=== PATIENT | male | born 1955 | race Caucasian/White ===

== ENCOUNTER 2016-05-11 19:25 | Inpatient (IN) | payer OTHER, MEDICARE ==
[~2016-05-11] VITALS: Ht 180.3 cm; Wt 77.0 kg
[2016-05-11 19:27] VITALS: BP 128/68; PULSE 84; RESP 15; TEMP 97.4; O2SAT 98
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
[2016-05-11] MEDS ORDERED: SODIUM CHLOR 0.9% 1000 ML INJ 1,000 ML IV SCH ×2 (20:18→21:00)
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
[2016-05-11] MEDS ORDERED: MORPHINE SULFATE 4 MG/ML INJ IV PUSH ONE (20:30)
[2016-05-11] MEDS ORDERED: ONDANSETRON HCL 4 MG/2 ML VIAL IVP ONE (20:30)
[2016-05-11] MEDS ORDERED: SODIUM CHLORIDE 0.9% FLUSH 5 ML FLUSH IVF PRN (20:30)
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
[2016-05-11] MEDS ORDERED: SODIUM CHLORIDE 0.9% FLUSH 5 ML FLUSH FLUSH PRN (21:00)
[2016-05-11] MEDS ORDERED: ONDANSETRON HCL 4 MG/2 ML VIAL IVP PRN (21:00)
[2016-05-11] MEDS ORDERED: BISACODYL 10 MG SUPP PR PRN (21:00)
[2016-05-11] MEDS ORDERED: ACETAMINOPHEN 325 MG TAB PO PRN (21:00)
[2016-05-11] MEDS ORDERED: SODIUM CHLORIDE 0.9% FLUSH 5 ML FLUSH FLUSH SCH (21:00)
--- NOTE | 2016-05-11 21:00 | RADRPT ---
EXAM DATE/TIME: 05/11/2016 20:24 [facility] COMPARISON: No previous studies available for comparison. INDICATIONS : Evaluate heart and lungs for pneumonia or communicable disease. MEDICAL HISTORY : None. SURGICAL HISTORY : None. ENCOUNTER: Initial ACUITY: 1 day PAIN SCORE: 0/10 LOCATION: chest FINDINGS: A single view of the chest demonstrates the lungs to be symmetrically aerated without evidence of mas s, infiltrate or effusion. Atherosclerotic change is present in the aorta. The cardiomediastinal con tours are unremarkable. Osseous structures are intact. CONCLUSION: No acute disease. Huber Mckee MD on May 11, 2016 at 20:58 Board Certified Radiologist. This report was verified electronically.
[2016-05-11] MEDS ORDERED: PROPOFOL 200 MG/20 ML AMP IV ONE ×2 (21:30→23:15)
[2016-05-11 21:38] LABS: AUTOMATED NEUTROPHIL # 3.4 TH/MM3 (1.8-7.7); BASOPHIL % 0.3 % (0.0-2.0); EOSINOPHIL # 0.1 TH/MM3 (0-0.4); EOSINOPHIL % 1.9 % (0.0-4.0); HEMATOCRIT 37.8 % (39.0-51.0); LYMPH % 13.8 % (9.0-44.0); LYMPHOCYTE # 0.6 TH/MM3 (1.0-4.8); MEAN CELL VOLUME 84.3 FL (80.0-100.0); MEAN CORPUSCULAR HEMOGLOBIN 29.8 PG (27.0-34.0); MEAN CORPUSCULAR HGB CONC 35.3 % (32.0-36.0); MONO % 7.2 % (0.0-8.0); NEUT % 76.8 % (16.0-70.0); PLATELET COUNT 50 TH/MM3 (150-450); RED BLOOD COUNT 4.49 MIL/MM3 (4.50-5.90); RED CELL DISTRIBUTION WIDTH 14.3 % (11.6-17.2); WHITE BLOOD COUNT 4.4 TH/MM3 (4.0-11.0)
[2016-05-11 21:42] LABS: HEMO FLAGS AUTO DIFF
[2016-05-11 21:46] LABS: APTT (PATIENT) 26.4 SEC (24.3-30.1); INTERNATIONAL NORMALIZED RATIO 1.1 RATIO; PROTHROMBIN TIME - PATIENT 12.1 SEC (9.8-11.6)
--- NOTE | 2016-05-11 21:53 | PD ---
Data Data Last Documented VS Vital Signs Date Time Temp Pulse Resp B/P Pulse Ox O2 Delivery O2 Flow Rate FiO2 05/11/16 19:27 97.4 84 15 128/68 98 Room Air Orders Knee, Complete (4vws) (05/11/16 ) Ice/Cold Pack (05/11/16 19:50) Basic Metabolic Panel (Bmp) (05/11/16 20:18) Complete Blood Count With Diff (05/11/16 20:18) Prothrombin Time / Inr (Pt) (05/11/16 20:18) Act Partial Throm Time (Ptt) (05/11/16 20:18) Iv Access Insert/Monitor (05/11/16 20:18) Ecg Monitoring (05/11/16 20:18) Oximetry (05/11/16 20:18) Morphine Inj (Morphine Inj) (05/11/16 20:30) Ondansetron Inj (Zofran Inj) (05/11/16 20:30) Sodium Chlor 0.9% 1000 Ml Inj (Ns 1000 M (05/11/16 20:18) Sodium Chloride 0.9% Flush (Ns Flush) (05/11/16 20:30) Electrocardiogram (05/11/16 20:18) Chest, Single Ap (05/11/16 20:18) Splint Or Brace Apply/Monitor (05/11/16 20:43) Traction (05/11/16 20:43) Consult Orthopedic (05/11/16 ) Admit To Inpatient (05/11/16 ) Vital Signs (Adult) Q4H (05/11/16 20:50) Activity Bed Rest (05/11/16 20:50) Diet Npo (05/12/16 Breakfast) Sodium Chlor 0.9% 1000 Ml Inj (Ns 1000 M (05/11/16 21:00) Sodium Chloride 0.9% Flush (Ns Flush) (05/11/16 21:00) Sodium Chloride 0.9% Flush (Ns Flush) (05/11/16 21:00) Ondansetron Inj (Zofran Inj) (05/11/16 21:00) Bisacodyl Supp (Dulcolax Supp) (05/11/16 21:00) Comprehensive Metabolic Panel (05/12/16 06:00) Complete Blood Count With Diff (05/12/16 06:00) Acetaminophen (Tylenol) (05/11/16 21:00) Morphine Inj (Morphine Inj) (05/11/16 21:00) Inpatient Certification (05/11/16 ) Admit Order (Ed Use Only) (05/11/16 20:56) Labs Laboratory Tests Test 05/11/16 20:52 White Blood Count 4.4 TH/MM3 Red Blood Count 4.49 MIL/MM3 Hemoglobin 13.4 GM/DL Hematocrit 37.8 % Mean Corpuscular Volume 84.3 FL Mean Corpuscular Hemoglobin 29.8 PG Mean Corpuscular Hemoglobin 35.3 % Concent Red Cell Distribution Width 14.3 % Platelet Count 50 TH/MM3 Mean Platelet Volume 8.9 FL Neutrophils (%) (Auto) 76.8 % Lymphocytes (%) (Auto) 13.8 % Monocytes (%) (Auto) 7.2 % Eosinophils (%) (Auto) 1.9 % Basophils (%) (Auto) 0.3 % Neutrophils # (Auto) 3.4 TH/MM3 Lymphocytes # (Auto) 0.6 TH/MM3 Monocytes # (Auto) 0.3 TH/MM3 Eosinophils # (Auto) 0.1 TH/MM3 Basophils # (Auto) 0.0 TH/MM3 CBC Comment AUTO DIFF Prothrombin Time 12.1 SEC Prothromb Time International 1.1 RATIO Ratio Activated Partial 26.4 SEC Thromboplast Time MDM Medical Record Reviewed: Yes Supervised Visit with ABRAHAM: Yes Narrative Course Per request of orthopedics procedural sedation with reduction of proximal left tibia fracture was performed. MAY Spicer performed reduction. The blurb writer performed the procedural sedation. Traction countertraction technique employed. Postreduction film ordered. 2+ dorsalis pedis pulse before and after. Sensation and motor function intact after the reduction. An ice cuff was placed and a knee immobilizer was placed with Monroy's traction immediately following the procedure. The patient will be admitted to the hospitalist service; the hospitalist service has been consulted. Procedures Procedure Narrative After the risks and benefits were discussed the following procedure was performed: MODERATE SEDATION: The patient was placed on a hospital monitor and pulse oximetry. An ambu bag and suction was immediately available at bedside. The patient was monitored by the nurse. Oxygen saturation , heart rate and blood pressure were monitored. Procedural sedation was acheived using propofol. The patient was observed until awake and alert. Procedural Sedation time in attendance was 10 minutes. Scripts Unable to Obtain Active Prescriptions or Reported Meds Joseph Cabrera MD May 11, 2016 21:53
[2016-05-11 21:58] LABS: BICARBONATE 29.5 MEQ/L (21.0-32.0); POTASSIUM 4.4 MEQ/L (3.5-5.1)
[2016-05-11 22:06] VITALS: BP 120/67; PULSE 79; RESP 12; O2SAT 98
[2016-05-11 22:07] VITALS: RESP 12; O2SAT 100
[2016-05-11 22:11] LABS: PLATELET ESTIMATE SMEAR LOW (NORMAL); PLATELET MORPHOLOGY NORMAL (NORMAL); SCAN/DIFF AUTO DIFF CONFIRMED
[2016-05-11 22:45] VITALS: BP 106/58; PULSE 90; RESP 12; O2SAT 100
--- NOTE | 2016-05-11 22:50 | RADRPT ---
EXAM DATE/TIME: 05/11/2016 22:00 [facility] COMPARISON: KNEE LEFT COMPLETE (4VWS), May 11, 2016, 20:05. INDICATIONS : Evaluate knee post reduction. MEDICAL HISTORY : None. SURGICAL HISTORY : None. ENCOUNTER: Initial ACUITY: 1 day PAIN SCORE: 0/10 LOCATION: Left Knee FINDINGS: AP and lateral views of the left knee were obtained and demonstrate mild overlying artifact. A commin uted fracture of the proximal tibia is again noted with multiple fracture fragments. The main fractur e fragments are now in near-anatomic alignment. There is apparent central depression of one of the fr agments measuring up to 1.7 cm. There is overlying soft tissue swelling. The distal femur and fibula remain intact in appearance. CONCLUSION: Post reduction exam with the major fracture fragments in near-anatomic alignment. A c entral fragment remains depressed in appearance. Huber Mckee MD on May 11, 2016 at 22:47 Board Certified Radiologist. This report was verified electronically.
[2016-05-11 22:54] VITALS: O2SAT 100
[2016-05-11 23:22] VITALS: BP 139/77; PULSE 83; RESP 16; TEMP 98.6; O2SAT 98
[2016-05-12 04:00] VITALS: BP 142/70; PULSE 90; RESP 16; TEMP 99.1; O2SAT 96
[2016-05-12] MEDS: MORPHINE SULFATE 4 MG/ML INJ IV PRN ×2 (05:19→07:59)
[2016-05-12 07:28] LABS: AUTOMATED NEUTROPHIL # 2.6 TH/MM3 (1.8-7.7); BASOPHIL % 0.5 % (0.0-2.0); EOSINOPHIL # 0.1 TH/MM3 (0-0.4); EOSINOPHIL % 2.4 % (0.0-4.0); HEMATOCRIT 36.1 % (39.0-51.0); LYMPH % 19.7 % (9.0-44.0); LYMPHOCYTE # 0.7 TH/MM3 (1.0-4.8); MEAN CELL VOLUME 84.5 FL (80.0-100.0); MEAN CORPUSCULAR HEMOGLOBIN 28.9 PG (27.0-34.0); MEAN CORPUSCULAR HGB CONC 34.2 % (32.0-36.0); MONO % 8.9 % (0.0-8.0); NEUT % 68.5 % (16.0-70.0); PLATELET COUNT 41 TH/MM3 (150-450); RED BLOOD COUNT 4.27 MIL/MM3 (4.50-5.90); RED CELL DISTRIBUTION WIDTH 14.4 % (11.6-17.2); WHITE BLOOD COUNT 3.8 TH/MM3 (4.0-11.0)
[2016-05-12 08:00] VITALS: BP 143/83; PULSE 95; RESP 18; TEMP 99.3; O2SAT 97
[2016-05-12 08:04] LABS: ALKALINE PHOSPHATASE 65 U/L (45-117); ALT (GPT) 50 U/L (12-78); ANION GAP 8 MEQ/L (5-15); AST (GOT) 79 U/L (15-37); BICARBONATE 29.2 MEQ/L (21.0-32.0); BLOOD UREA NITROGEN 10 MG/DL (7-18); CHLORIDE 98 MEQ/L (98-107); GLOMERULAR FILTRATION RATE 99 ML/MIN (>89); POTASSIUM 4.2 MEQ/L (3.5-5.1); SODIUM (NA) 135 MEQ/L (136-145); TOTAL BILIRUBIN ADULT 2.6 MG/DL (0.2-1.0)
[2016-05-12 08:07] LABS: HEMO FLAGS AUTO DIFF
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
[2016-05-12 09:16] LABS: PLATELET ESTIMATE SMEAR LOW (NORMAL); PLATELET MORPHOLOGY NORMAL (NORMAL); SCAN/DIFF AUTO DIFF CONFIRMED
[2016-05-12] MEDS ORDERED: WALKER/ADULT/FO1 MIS (09:17)
[2016-05-12] MEDS ORDERED: COMMODE 3-IN-11 MIS (09:17)
--- NOTE | 2016-05-12 09:20 | EKG ---
Date Performed: 05/12/2016 Time Performed: 06:05:39 PTAGE: 60 years EKG: Sinus rhythm NONSPECIFIC T-WAVE ABNORMALITY BORDERLINE ECG No significant change from prior electrocardiogram. PREVIOUS TRACING : 05/11/2016 20.13 DOCTOR: Abraham Herrera Interpretating Date/Time 05/12/2016 09:19:14
[2016-05-12] MEDS ORDERED: VANCOMYCIN HCL 1000 MG VIAL ONE (09:25)
[2016-05-12] MEDS ORDERED: GENTAMICIN SULFATE 80 MG/2 ML VIAL ONE (09:25)
[2016-05-12] MEDS ORDERED: ceFAZolin INJ 1,000 MG VIAL ONE (09:25)
--- NOTE | 2016-05-12 09:32 | EKG ---
Date Performed: 05/11/2016 Time Performed: 20:13:41 PTAGE: 60 years EKG: Sinus rhythm WITH OCCASIONAL SUPRAVENTRICULAR PREMATURE COMPLEXES NONSPECIFIC T-WAVE ABNORMALITY BORDERLINE ECG NO PREVIOUS TRACING DOCTOR: Abraham Herrera Interpretating Date/Time 05/12/2016 09:31:26
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
[2016-05-12] MEDS ORDERED: GENTAMICIN SULFATE 80 MG/2 ML VIAL XX ONE (09:45)
[2016-05-12] MEDS ORDERED: MAGNESIUM HYDROXIDE SUSP 30 ML CUP PO PRN (10:00)
[2016-05-12] MEDS ORDERED: ONDANSETRON HCL 4 MG/2 ML VIAL IVP PRN (10:00)
[2016-05-12] MEDS ORDERED: MISCELLANEOUS NURSING INFORMATION XX PRN (10:00)
[2016-05-12] MEDS ORDERED: SODIUM CHLORIDE 0.9% FLUSH 5 ML FLUSH IVF PRN (10:00)
[2016-05-12] MEDS ORDERED: NALOXONE HCL 0.4 MG/ML AMP IV PRN (10:00)
[2016-05-12] MEDS ORDERED: Post-op Orders (for Pharmacy) MISC XX ONE (10:00)
[2016-05-12] MEDS ORDERED: MISCELLANEOUS PHARMACY INFORMATION XX ONE (10:00)
--- NOTE | 2016-05-12 10:32 | PD.OP ---
cc: Eduardo Abrams MD Operative Report Date of Surgery: May 12, 2016 Preoperative Diagnosis: Left bicondylar tibial plateau fracture. Postoperative Diagnosis: Same Procedure: Left leg close reduction of bicondylar tibial plateau fracture. Left leg application of uniplanar external fixator. Anesthesia: Gen. Surgeon: Eduardo Abrams Hand Clerical Verifier(s): LIZZETTE Hunt The surgical procedure was assisted by my Advanced Registered Nurse Practitioner. My TOPSTITCHER LOCKSTITCH presence was necessary throughout this case for the manipulation and positioning of the surgical extremity. My TOPSTITCHER LOCKSTITCH was assisting me throughout the duration of this procedure. The skill set of an Advance Registered Nurse Practitioner was medically necessary to complete this procedure. During the surgical case, the surgical training specialist was working at the back table and the Advance Registered Nurse Practitioner was directly assisting me. Operation and Findings: The patient was brought back to the operative theater. He received intravenous antibiotics. We decided to move forward with an external fixator since the patient had moderate swelling of the leg. The compartments were soft with no clinical suspicion of compartment syndrome. Additionally the patient continued to have thrombocytopenia. The most recent value showed a little 40 which was down from yesterday. He will need to have this corrected prior to definitive surgical management such as ORIF. Gen. anesthesia was administered. The left lower extremity was prepped and draped in the usual sterile fashion. We made incision and used the guide to place 2 coated threaded Synthes half pins into the femur. We did the same on the tibia placing 2 half pins as well. We then performed a closed reduction of the fracture distracting the knee joint which lined up the fracture and much better position and no longer had articular cartilage pushing up against the edge of the tibial fracture site. We secured the leg in this position by placing 2 carbon fiber rods in parallel fashion one medial and one lateral off of the outriggers that we placed on the half pins. We take x-rays to include an AP and lateral showing good alignment. There was still some depression of the comminuted plateau itself. The pins were dressed. Postoperative plan is for planned, staged surgical management of the tibial plateau to include removal of the external fixator with open reduction and internal fixation. We will place the patient on Lovenox for now which will need to be stopped prior to surgery. Additionally the patient will need to have his thrombocytopenia corrected prior to surgery. Eduardo Abrams MD May 12, 2016 10:31
[2016-05-12] MEDS ORDERED: *hydrOXYzine 25 MG VIAL PERIprocedural Use ONLY IM ONE (10:44)
[2016-05-12] MEDS ORDERED: *morphine SULFATE 8 MG/ML PERIprocedure ONLY ONE (10:49)
[2016-05-12] MEDS ORDERED: *LABETALOL HCL 100 MG/20 ML VIAL PERIprocedural Use ONLY ONE (10:49)
[2016-05-12] MEDS ORDERED: fentaNYL CITRATE 250 MCG/5 ML AMP ONE (10:49)
[2016-05-12] MEDS ORDERED: MIDAZOLAM HCL 2 MG/2 ML VIAL ONE (10:49)
[2016-05-12] MEDS: DEXT 5%-NACL 0.45% 1000 ML INJ 1,000 ML IV SCH ×2 (11:00→21:00)
[2016-05-12 12:00] VITALS: BP 165/69; PULSE 89; RESP 18; TEMP 98.9; O2SAT 99
[2016-05-12] MEDS ORDERED: LORazepam 2 MG TAB PO PRN ×2 (12:00)
[2016-05-12] MEDS ORDERED: ONDANSETRON HCL 4 MG/2 ML VIAL IV PUSH ONE (12:00)
[2016-05-12] MEDS ORDERED: LORazepam 1 MG TAB PO PRN ×2 (12:00)
[2016-05-12] MEDS ORDERED: PHENYLEPH/NS 1000 MCG/10 ML SYR IV ONE (12:00)
[2016-05-12] MEDS ORDERED: PROPOFOL 200 MG/20 ML AMP IV ONE (12:00)
[2016-05-12] MEDS ORDERED: NEOSTIGMINE 3 MG/3 ML SYR IV ONE (12:00)
[2016-05-12] MEDS ORDERED: FLUMAZENIL 0.5 MG/5 ML VIAL IV PUSH PRN ×2 (12:00)
[2016-05-12] MEDS ORDERED: LORazepam 2 MG/ML VIAL IV PUSH PRN ×7 (12:00)
[2016-05-12] MEDS: ACETAMINOPHEN/HYDROcodone 325 MG/10 MG TAB PO PRN ×2 (13:48→22:41)
[2016-05-12 14:14] LABS: MAGNESIUM 1.5 MG/DL (1.5-2.5)
--- NOTE | 2016-05-12 14:32 | RADRPT ---
EXAM DATE/TIME: 05/12/2016 10:20 [facility] COMPARISON: CT KNEE LEFT W/O CONTRAST, May 12, 2016, 8:29. KNEE LEFT LTD (1 OR 2VWS), May 11, 2016, 22:00. INDICATIONS : Left knee external fixation. MEDICAL HISTORY : None. SURGICAL HISTORY : None. ENCOUNTER: Subsequent ACUITY: 2 days PAIN SCORE: Non-responsive. LOCATION: Left knee. FINDINGS: 2 coned-down views of the knee were obtained a drop of the using a matrix camera and demonstrate a mo derately comminuted fracture deformity of the proximal tibia. The fracture fragments appear in near-a natomic line and except for a portion of the central tibia which may be depressed. The external fixat ion device is not visualized. The distal femur is intact. CONCLUSION: Comminuted fracture of proximal tibia. Huber Mckee MD on May 12, 2016 at 14:26 Board Certified Radiologist. This report was verified electronically.
[2016-05-12] MEDS: PANTOPRAZOLE SOD 40 MG DELAYED RELEASE TAB PO SCH (14:44)
[2016-05-12] MEDS: FOLIC ACID 1 MG TAB PO SCH (14:44)
[2016-05-12] MEDS: THIAMINE HCL 100 MG TAB PO SCH (14:44)
[2016-05-12] MEDS: MULTIVITAMINS/MINERALS THERAPEUTIC TAB PO SCH (14:44)
[2016-05-12 16:00] VITALS: BP 154/89; PULSE 79; RESP 19; TEMP 98.3; O2SAT 100
[2016-05-12] MEDS: NICOTINE 21 MG/24 HR PATCH TD SCH (16:12)
[2016-05-12] MEDS: MAGNESIUM SULFATE 1 GM PREMIX 100 ML IV SCH ×2 (16:13→19:36)
[2016-05-12 17:01] LABS: AMPHETAMINE, URINE NEG (NEG); BARBITURATES, URINE NEG (NEG); COCAINE, URINE NEG (NEG)
[2016-05-12 20:00] VITALS: BP 167/83; PULSE 81; RESP 16; TEMP 99.8; O2SAT 98
[2016-05-12] MEDS: DOCUSATE SODIUM 50 MG/SENNA 8.6 MG TAB PO SCH (22:40)
[2016-05-12] MEDS: SODIUM CHLORIDE 0.9% FLUSH 5 ML FLUSH IVF SCH (22:40)
[2016-05-12] MEDS: SODIUM CHLORIDE 0.9% FLUSH 5 ML FLUSH IV FLUSH SCH (22:41)
[2016-05-13] VITALS: BP 143/87; PULSE 79; RESP 16; TEMP 98.7; O2SAT 97
[2016-05-13] MEDS: MORPHINE SULFATE 4 MG/ML INJ IV PRN ×5 (01:55→21:19)
[2016-05-13 04:00] VITALS: BP 160/80; PULSE 97; RESP 20; TEMP 98.2; O2SAT 97
[2016-05-13] MEDS: ACETAMINOPHEN/HYDROcodone 325 MG/10 MG TAB PO PRN (05:47)
[2016-05-13 06:48] LABS: AUTOMATED NEUTROPHIL # 3.1 TH/MM3 (1.8-7.7); BASOPHIL % 0.1 % (0.0-2.0); EOSINOPHIL % 0.7 % (0.0-4.0); HEMATOCRIT 33.4 % (39.0-51.0); LYMPH % 18.2 % (9.0-44.0); LYMPHOCYTE # 0.8 TH/MM3 (1.0-4.8); MEAN CELL VOLUME 82.8 FL (80.0-100.0); MEAN CORPUSCULAR HEMOGLOBIN 29.1 PG (27.0-34.0); MEAN CORPUSCULAR HGB CONC 35.1 % (32.0-36.0); MONO % 9.1 % (0.0-8.0); NEUT % 71.9 % (16.0-70.0); PLATELET COUNT 33 TH/MM3 (150-450); RED BLOOD COUNT 4.03 MIL/MM3 (4.50-5.90); RED CELL DISTRIBUTION WIDTH 14.3 % (11.6-17.2); WHITE BLOOD COUNT 4.4 TH/MM3 (4.0-11.0)
[2016-05-13] MEDS: DEXT 5%-NACL 0.45% 1000 ML INJ 1,000 ML IV SCH ×2 (07:00→17:00)
[2016-05-13 07:03] LABS: BICARBONATE 29.3 MEQ/L (21.0-32.0); HEMO FLAGS AUTO DIFF; POTASSIUM 3.8 MEQ/L (3.5-5.1)
--- NOTE | 2016-05-13 07:08 | HHI.FPPN ---
Objective Vitals Vital Signs Date Time Temp Pulse Resp B/P Pulse Ox O2 Delivery O2 Flow Rate FiO2 05/13/16 04:00 98.2 97 20 160/80 97 05/13/16 00:00 98.7 79 16 143/87 97 05/12/16 20:00 99.8 81 16 167/83 98 05/12/16 16:00 98.3 79 19 154/89 100 05/12/16 12:00 98.9 89 18 165/69 99 05/12/16 11:15 92 18 156/97 99 Nasal Cannula 3 05/12/16 11:00 93 18 152/94 99 Nasal Cannula 3 05/12/16 10:45 109 18 158/106 98 Nasal Cannula 3 05/12/16 10:40 98.2 116 18 162/97 98 Nasal Cannula 3 05/12/16 08:00 99.3 95 18 143/83 97 I/O 05/12/16 05/12/16 05/12/16 05/13/16 05/13/16 05/13/16 07:00 15:00 23:00 07:00 15:00 23:00 Intake Total 0 ml 1380 ml 360 ml 240 ml Output Total 550 ml 655 ml 400 ml 600 ml Balance -550 ml 725 ml -40 ml -360 ml Intake Oral 0 ml 480 ml 360 ml 240 ml IV Total 0 ml Other 900 ml Output Urine Total 550 ml 650 ml 400 ml 600 ml Estimated Blood Loss 5 ml Other 0 ml # Bowel Movements 0 Result Diagram: 05/13/16 0540 05/13/16 0540 Nayely Corbett MD May 13, 2016 07:08
[2016-05-13 08:00] VITALS: BP 163/85; PULSE 96; RESP 17; TEMP 99.1; O2SAT 96
[2016-05-13] MEDS: HEPARIN SODIUM - SQ 10,000 UNITS/ML VIAL SQ SCH (08:17)
[2016-05-13] MEDS: FOLIC ACID 1 MG TAB PO SCH (08:17)
[2016-05-13] MEDS: THIAMINE HCL 100 MG TAB PO SCH (08:17)
[2016-05-13] MEDS: NICOTINE 21 MG/24 HR PATCH TD SCH (08:17)
[2016-05-13] MEDS: MULTIVITAMINS/MINERALS THERAPEUTIC TAB PO SCH (08:17)
[2016-05-13] MEDS: DOCUSATE SODIUM 50 MG/SENNA 8.6 MG TAB PO SCH ×2 (08:18→21:00)
[2016-05-13] MEDS: PANTOPRAZOLE SOD 40 MG DELAYED RELEASE TAB PO SCH (08:18)
[2016-05-13 08:34] LABS: PLATELET ESTIMATE SMEAR LOW (NORMAL); PLATELET MORPHOLOGY NORMAL (NORMAL); SCAN/DIFF AUTO DIFF CONFIRMED
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
[2016-05-13] MEDS: SODIUM CHLORIDE 0.9% FLUSH 5 ML FLUSH IV FLUSH SCH ×2 (09:00→21:23)
[2016-05-13] MEDS ORDERED: MULTIVITAMIN TAB PO SCH (09:00)
[2016-05-13] MEDS: SODIUM CHLORIDE 0.9% FLUSH 5 ML FLUSH IVF SCH ×2 (09:00→21:22)
[2016-05-13] MEDS ORDERED: ENOXAPARIN SODIUM 40 MG/0.4 ML SYRINGE SQ SCH (09:36)
[2016-05-13 12:00] VITALS: BP 162/89; PULSE 98; RESP 17; TEMP 99.3; O2SAT 98
[2016-05-13 16:00] VITALS: BP 155/82; PULSE 105; RESP 17; TEMP 100.1; O2SAT 98
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
[2016-05-13 21:09] LABS: INDIRECT BILIRUBIN 1.5 MG/DL (0.0-0.8); TOTAL BILIRUBIN ADULT 2.4 MG/DL (0.2-1.0)
[2016-05-13 23:54] VITALS: BP 153/84; PULSE 101; RESP 22; TEMP 98.5; O2SAT 98
[2016-05-14] VITALS (7 sets, daily range): BP systolic 125–150; BP diastolic 70–92; PULSE 80–116; RESP 16–22; TEMP 98.2–99.2; O2SAT 96–98
[2016-05-14] MEDS: MORPHINE SULFATE 4 MG/ML INJ IV PRN ×6 (00:16→22:39)
[2016-05-14] MEDS: DEXT 5%-NACL 0.45% 1000 ML INJ 1,000 ML IV SCH ×2 (03:00→13:00)
[2016-05-14 05:11] LABS: HEMATOCRIT 33.8 % (39.0-51.0); MEAN CELL VOLUME 82.8 FL (80.0-100.0); MEAN CORPUSCULAR HEMOGLOBIN 29.2 PG (27.0-34.0); MEAN CORPUSCULAR HGB CONC 35.2 % (32.0-36.0); PLATELET COUNT 39 TH/MM3 (150-450); RED BLOOD COUNT 4.08 MIL/MM3 (4.50-5.90); RED CELL DISTRIBUTION WIDTH 14.2 % (11.6-17.2); REVIEW FLAG FINAL; WHITE BLOOD COUNT 4.4 TH/MM3 (4.0-11.0)
[2016-05-14 05:25] LABS: ALT (GPT) 32 U/L (12-78); ANION GAP 10 MEQ/L (5-15); AST (GOT) 33 U/L (15-37); BICARBONATE 29.5 MEQ/L (21.0-32.0); BLOOD UREA NITROGEN 9 MG/DL (7-18); CHLORIDE 93 MEQ/L (98-107); GLOMERULAR FILTRATION RATE 121 ML/MIN (>89); POTASSIUM 3.9 MEQ/L (3.5-5.1); RHEUMATOID FACTOR TRIGGER LESS THAN 10.0 IU/ML (0.0-14.9); SODIUM (NA) 132 MEQ/L (136-145)
[2016-05-14 05:27] LABS: ALKALINE PHOSPHATASE 56 U/L (45-117); LDH SERUM 172 U/L (87-241); TOTAL BILIRUBIN ADULT 2.7 MG/DL (0.2-1.0)
--- NOTE | 2016-05-14 07:43 | PD.ORT.PN ---
Subjective Subjective Remarks s/p MCA with application of exfix left tibial plateau by Dr Abrams doing well. reports slight pain. nurse reports had significantly low platelets and hematology consult was placed. awaiting consult Objective Vitals Vital Signs Date Time Temp Pulse Resp B/P Pulse Ox O2 Delivery O2 Flow Rate FiO2 05/14/16 01:18 99.2 102 22 150/84 96 05/13/16 23:54 98.5 101 22 153/84 98 05/13/16 16:00 100.1 105 17 155/82 98 05/13/16 12:00 99.3 98 17 162/89 98 05/13/16 08:00 99.1 96 17 163/85 96 I/O 05/13/16 05/13/16 05/13/16 05/14/16 05/14/16 05/14/16 07:00 15:00 23:00 07:00 15:00 23:00 Intake Total 240 ml 960 ml 840 ml Output Total 600 ml 1900 ml 1300 ml Balance -360 ml -940 ml -460 ml Intake Oral 240 ml 960 ml 840 ml Output Urine Total 600 ml 1900 ml 1300 ml # Bowel Movements 0 0 Result Diagram: 05/14/16 0424 05/14/16 0424 Objective Remarks LLE: +exfix. pin sites clean. NVI with good dorsiflexion. compartments soft. + swelling Assessment & Plan Assessment and Plan POD # 2 s/p L leg CR tibial plateau fx with application of ex fix pin site care bed rest, NWB LLE heparin for dvt prop-- patient has hx of low platelet count staged surgical management of the tibial plateau to include removal of the external fixator with open reduction and internal fixation. possible surgery tomorrow if platelets corrected and cleared for surgery will assess swelling tomorrow Faizan Haywood May 14, 2016 07:43
[2016-05-14] MEDS: DOCUSATE SODIUM 50 MG/SENNA 8.6 MG TAB PO SCH ×2 (08:34→19:38)
[2016-05-14] MEDS: MULTIVITAMINS/MINERALS THERAPEUTIC TAB PO SCH (08:34)
[2016-05-14] MEDS: FOLIC ACID 1 MG TAB PO SCH (08:34)
[2016-05-14] MEDS: THIAMINE HCL 100 MG TAB PO SCH (08:34)
[2016-05-14] MEDS: PANTOPRAZOLE SOD 40 MG DELAYED RELEASE TAB PO SCH (08:35)
[2016-05-14] MEDS: SODIUM CHLORIDE 0.9% FLUSH 5 ML FLUSH IV FLUSH SCH ×2 (08:36→19:39)
[2016-05-14] MEDS: SODIUM CHLORIDE 0.9% FLUSH 5 ML FLUSH IVF SCH ×2 (08:36→19:39)
[2016-05-14] MEDS: NICOTINE 21 MG/24 HR PATCH TD SCH (08:36)
[2016-05-14 08:37] LABS: FERRITIN 196 NG/ML (26-388); TRANSFERRIN IRON PROFILE 177 MG/DL (200-360)
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
[2016-05-14] MEDS: CYANOCOBALAMIN 1000 MCG/ML VIAL IM SCH (11:46)
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
[2016-05-14 14:47] LABS: ANA SCREEN NEG (NEG)
[2016-05-14] MEDS ORDERED: SODIUM CHLOR 0.9% 1000 ML INJ 1,000 ML IV SCH (15:00)
[2016-05-14] MEDS: ACETAMINOPHEN/HYDROcodone 325 MG/10 MG TAB PO PRN ×2 (16:00→21:49)
--- NOTE | 2016-05-14 17:07 | RADRPT ---
EXAM DATE/TIME: 05/14/2016 13:53 [facility] COMPARISON: No previous studies available for comparison. INDICATIONS : Evaluate cirrhosis and hyperspleenism ORAL CONTRAST: No oral contrast ingested. RADIATION DOSE: 8.86 CTDIvol (mGy) MEDICAL HISTORY : Hypertension. SURGICAL HISTORY : None. ENCOUNTER: Initial ACUITY: 1 day PAIN SCALE: 0/10 LOCATION: abdomen TECHNIQUE: Volumetric scanning of the abdomen and pelvis was performed. Using automated exposure control and ad justment of the mA and/or kV according to patient size, radiation dose was kept as low as reasonably achievable to obtain optimal diagnostic quality images. FINDINGS: LOWER LUNGS: The visualized lower lungs are clear. LIVER: Liver is small and nodular characteristic of cirrhosis with no focal lesion. Innumerable gallstones i n the gallbladder lumen. SPLEEN: Enlarged measuring 16 cm in greatest SI dimension with scattered granulomatous type calcifications. PANCREAS: Within normal limits. KIDNEYS: Normal in size and shape. Collection of stones in the lower pole collecting system on the left withou t obstruction. ADRENAL GLANDS: Within normal limits. VASCULAR: There is no aortic aneurysm. BOWEL/MESENTERY: The stomach, small bowel, and colon demonstrate no acute abnormality. There is no free intraperitone al air or fluid. The extensive varicosities in the splenic hilum extending to the short gastric vesse ls about the stomach. ABDOMINAL WALL: Within normal limits. RETROPERITONEUM: There is no lymphadenopathy. BLADDER: No wall thickening or mass. REPRODUCTIVE: Within normal limits. INGUINAL: There is no lymphadenopathy or hernia. MUSCULOSKELETAL: Within normal limits for patient age. CONCLUSION: 1. CT findings characteristic of cirrhosis with portal hypertension as evident by splenomegaly and ex tensive splenic hilar and short gastric varicosities. 2. Nonobstructing 7 mm calculus in the lower pole collecting system of the left kidney. 3. Extensive cholelithiasis. Edi Mota MD on May 14, 2016 at 17:00 Board Certified Radiologist. This report was verified electronically.
[2016-05-14] MEDS ORDERED: SODIUM CHLOR 0.9% 250 ML INJ 250 ML IV ONE (17:30)
[2016-05-14] MEDS: diphenhydrAMINE HCL 25 MG CAP PO PRN (22:38)
[2016-05-15 00:10] VITALS: BP 140/73; PULSE 100; RESP 16; TEMP 97.2; O2SAT 97
[2016-05-15 00:41] LABS: MEAN CORPUSCULAR HGB CONC 36.6 % (32.0-36.0)
[2016-05-15] MEDS: MORPHINE SULFATE 4 MG/ML INJ IV PRN ×3 (01:25→12:33)
[2016-05-15 02:30] LABS: BASOPHIL % 0.1 % (0.0-2.0); EOSINOPHIL # 0.1 TH/MM3 (0-0.4); EOSINOPHIL % 2.1 % (0.0-4.0); HEMATOCRIT 30.4 % (39.0-51.0); LYMPH % 28.1 % (9.0-44.0); MEAN CELL VOLUME 81.7 FL (80.0-100.0); MEAN CORPUSCULAR HEMOGLOBIN 29.4 PG (27.0-34.0); MONO % 12.3 % (0.0-8.0); NEUT % 57.4 % (16.0-70.0); PLATELET COUNT 50 TH/MM3 (150-450); RED BLOOD COUNT 3.72 MIL/MM3 (4.50-5.90); RED CELL DISTRIBUTION WIDTH 14.3 % (11.6-17.2); WHITE BLOOD COUNT 3.5 TH/MM3 (4.0-11.0)
[2016-05-15 02:34] LABS: HEMO FLAGS DIFF FINAL
[2016-05-15 03:50] VITALS: BP 140/80; PULSE 104; RESP 16; TEMP 98.2; O2SAT 94
[2016-05-15] MEDS: ACETAMINOPHEN/HYDROcodone 325 MG/10 MG TAB PO PRN (05:14)
--- NOTE | 2016-05-15 06:51 | PD.ORT.PN ---
Subjective Subjective Remarks Resting comfortably with no new complaints Objective Vitals Vital Signs Date Time Temp Pulse Resp B/P Pulse Ox O2 Delivery O2 Flow Rate FiO2 05/15/16 03:50 98.2 104 16 140/80 94 05/15/16 00:10 97.2 100 16 140/73 97 05/14/16 23:55 98.3 80 17 128/72 96 05/14/16 23:30 98.4 82 18 128/70 98 05/14/16 20:20 98.2 95 16 125/74 97 05/14/16 17:00 18 05/14/16 16:00 98.6 101 18 133/79 97 05/14/16 12:00 98.6 116 18 146/92 96 05/14/16 11:56 18 05/14/16 08:00 98.4 101 18 149/88 97 I/O 05/14/16 05/14/16 05/14/16 05/15/16 05/15/16 05/15/16 07:00 15:00 23:00 07:00 15:00 23:00 Intake Total 840 ml 960 ml 480 ml 240 ml Output Total 1300 ml 700 ml 700 ml 200 ml Balance -460 ml 260 ml -220 ml 40 ml Intake Oral 840 ml 960 ml 480 ml 240 ml Output Urine Total 1300 ml 700 ml 700 ml 200 ml # Bowel Movements 0 1 0 0 Result Diagram: 05/15/16 0204 05/14/16 0424 Imaging Last 24 hours Impressions Abdomen/Pelvis CT 05/14/16 1218 Signed Impressions: Service Date/Time: Saturday, May 14, 2016 13:53 - CONCLUSION: 1. CT findings characteristic of cirrhosis with portal hypertension as evident by splenomegaly and extensive splenic hilar and short gastric varicosities. 2. Nonobstructing 7 mm calculus in the lower pole collecting system of the left kidney. 3. Extensive cholelithiasis. Edi Mota MD Objective Remarks LLE: +exfix. pin sites clean. NVI with good dorsiflexion. compartments soft. 3+ swelling Assessment & Plan Assessment and Plan POD # 3 s/p L leg CR tibial plateau fx with application of ex fix Pin care twice a day bed rest, NWB LLE heparin for dvt prop-- patient has hx of low platelet count staged surgical management of the tibial plateau to include removal of the external fixator with open reduction and internal fixation. Swelling is too great and platelets are 2 low for surgery today We'll plan on surgery or Saturday Huber Claudio Jr. May 15, 2016 06:50
[2016-05-15] MEDS: NICOTINE 21 MG/24 HR PATCH TD SCH (07:43)
[2016-05-15] MEDS: FOLIC ACID 1 MG TAB PO SCH (07:44)
[2016-05-15] MEDS: FERROUS SULFATE 325 MG (65 MG ELEMENTAL IRON) TAB PO SCH (07:44)
[2016-05-15] MEDS: PANTOPRAZOLE SOD 40 MG DELAYED RELEASE TAB PO SCH (07:44)
[2016-05-15] MEDS: MULTIVITAMINS/MINERALS THERAPEUTIC TAB PO SCH (07:44)
[2016-05-15] MEDS: THIAMINE HCL 100 MG TAB PO SCH (07:45)
[2016-05-15] MEDS: CYANOCOBALAMIN 1000 MCG/ML VIAL IM SCH (07:45)
[2016-05-15] MEDS: SODIUM CHLORIDE 0.9% FLUSH 5 ML FLUSH IVF SCH ×2 (07:46→20:01)
[2016-05-15] MEDS: SODIUM CHLORIDE 0.9% FLUSH 5 ML FLUSH IV FLUSH SCH ×2 (07:46→21:03)
[2016-05-15] MEDS: DOCUSATE SODIUM 50 MG/SENNA 8.6 MG TAB PO SCH ×2 (07:46→20:58)
[2016-05-15 08:00] VITALS: BP 141/85; PULSE 106; RESP 18; TEMP 97.1; O2SAT 98
[2016-05-15 10:38] LABS: HEMATOCRIT 30.9 % (39.0-51.0); MEAN CELL VOLUME 81.6 FL (80.0-100.0); MEAN CORPUSCULAR HEMOGLOBIN 29.9 PG (27.0-34.0); PLATELET COUNT 47 TH/MM3 (150-450); RED BLOOD COUNT 3.79 MIL/MM3 (4.50-5.90); RED CELL DISTRIBUTION WIDTH 14.1 % (11.6-17.2)
[2016-05-15 10:44] LABS: REVIEW FLAG FINAL
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
[2016-05-15] MEDS ORDERED: IBUPROFEN 400 MG TAB PO PRN (11:30)
[2016-05-15] MEDS ORDERED: NALOXONE HCL 0.4 MG/ML AMP IV PRN (11:30)
[2016-05-15] MEDS ORDERED: oxyCODONE/ACETAMINOPHEN 5 MG/325 MG TAB PO PRN (11:30)
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
[2016-05-15 11:52] VITALS: BP 177/96; PULSE 112; RESP 19; TEMP 96.9; O2SAT 92
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
[2016-05-15] MEDS: PROPRANOLOL HCL 10 MG TAB PO SCH ×2 (13:21→20:58)
[2016-05-15 16:49] VITALS: BP 152/76; PULSE 78; RESP 18; TEMP 98.2; O2SAT 98
[2016-05-15 19:42] VITALS: BP 130/78; PULSE 80; RESP 20; TEMP 99.6; O2SAT 98
[2016-05-15] MEDS: diphenhydrAMINE HCL 25 MG CAP PO PRN (21:01)
[2016-05-16 00:20] VITALS: BP 149/77; PULSE 81; RESP 18; TEMP 98; O2SAT 98
[2016-05-16 06:16] LABS: BASOPHIL % 0.5 % (0.0-2.0); EOSINOPHIL # 0.1 TH/MM3 (0-0.4); EOSINOPHIL % 2.3 % (0.0-4.0); HEMATOCRIT 31.7 % (39.0-51.0); LYMPH % 17.6 % (9.0-44.0); LYMPHOCYTE # 0.8 TH/MM3 (1.0-4.8); MEAN CELL VOLUME 81.2 FL (80.0-100.0); MEAN CORPUSCULAR HEMOGLOBIN 29.1 PG (27.0-34.0); MEAN CORPUSCULAR HGB CONC 35.8 % (32.0-36.0); NEUT % 67.6 % (16.0-70.0); PLATELET COUNT 62 TH/MM3 (150-450); RED CELL DISTRIBUTION WIDTH 14.1 % (11.6-17.2); WHITE BLOOD COUNT 4.4 TH/MM3 (4.0-11.0)
[2016-05-16] MEDS: PROPRANOLOL HCL 10 MG TAB PO SCH ×3 (06:16→22:07)
[2016-05-16 06:21] LABS: HEMO FLAGS AUTO DIFF
[2016-05-16 07:31] VITALS: BP 149/76; PULSE 70; RESP 18; TEMP 97.6; O2SAT 97
[2016-05-16 08:00] VITALS: BP 140/77; PULSE 68; RESP 18; TEMP 98.3; O2SAT 98
[2016-05-16 08:02] LABS: SCAN/DIFF AUTO DIFF CONFIRMED
[2016-05-16] MEDS: SODIUM CHLORIDE 0.9% FLUSH 5 ML FLUSH IVF SCH ×2 (09:00→20:02)
[2016-05-16] MEDS: PANTOPRAZOLE SOD 40 MG DELAYED RELEASE TAB PO SCH (09:34)
[2016-05-16] MEDS: MULTIVITAMINS/MINERALS THERAPEUTIC TAB PO SCH (09:35)
[2016-05-16] MEDS: DOCUSATE SODIUM 50 MG/SENNA 8.6 MG TAB PO SCH ×2 (09:35→20:02)
[2016-05-16] MEDS: FERROUS SULFATE 325 MG (65 MG ELEMENTAL IRON) TAB PO SCH (09:35)
[2016-05-16] MEDS: FOLIC ACID 1 MG TAB PO SCH (09:35)
[2016-05-16] MEDS: NICOTINE 21 MG/24 HR PATCH TD SCH (09:36)
[2016-05-16] MEDS: SODIUM CHLORIDE 0.9% FLUSH 5 ML FLUSH IV FLUSH SCH ×2 (09:36→20:02)
[2016-05-16] MEDS: THIAMINE HCL 100 MG TAB PO SCH (09:36)
[2016-05-16] MEDS: CYANOCOBALAMIN 1000 MCG/ML VIAL IM SCH (09:37)
--- NOTE | 2016-05-16 10:11 | PD.ORT.PN ---
Subjective Subjective Remarks Resting comfortably with no new complaints Objective Vitals Vital Signs Date Time Temp Pulse Resp B/P Pulse Ox O2 Delivery O2 Flow Rate FiO2 05/16/16 08:00 98.3 68 18 140/77 98 05/16/16 07:31 97.6 70 18 149/76 97 05/16/16 00:20 98.0 81 18 149/77 98 05/15/16 21:58 18 05/15/16 19:42 99.6 80 20 130/78 98 05/15/16 16:49 98.2 78 18 152/76 98 05/15/16 12:38 18 05/15/16 11:52 96.9 112 19 177/96 92 I/O 05/15/16 05/15/16 05/15/16 05/16/16 05/16/16 05/16/16 07:00 15:00 23:00 07:00 15:00 23:00 Intake Total 240 ml 240 ml 720 ml 920 ml Output Total 200 ml 300 ml 500 ml 950 ml Balance 40 ml -60 ml 220 ml -30 ml Intake Oral 240 ml 240 ml 720 ml 920 ml Output Urine Total 200 ml 300 ml 500 ml 950 ml # Bowel Movements 0 0 0 0 Result Diagram: 05/16/16 0557 05/14/16 0424 Imaging Last 24 hours Impressions Abdomen/Pelvis CT 05/14/16 1218 Signed Impressions: Service Date/Time: Saturday, May 14, 2016 13:53 - CONCLUSION: 1. CT findings characteristic of cirrhosis with portal hypertension as evident by splenomegaly and extensive splenic hilar and short gastric varicosities. 2. Nonobstructing 7 mm calculus in the lower pole collecting system of the left kidney. 3. Extensive cholelithiasis. Edi Mota MD Objective Remarks LLE: +exfix. pin sites clean. NVI with good dorsiflexion. compartments soft. 3+ swelling Assessment & Plan Assessment and Plan POD # 4 s/p L leg CR tibial plateau fx with application of ex fix Pin care twice a day bed rest, NWB LLE heparin for dvt prop-- patient has hx of low platelet count Nothing by mouth after midnight Surgery tomorrow or Saturday depending on swelling Huber Claudio Jr. May 16, 2016 10:11
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
[2016-05-16 11:55] VITALS: BP 146/79; PULSE 71; RESP 18; TEMP 98.4; O2SAT 98
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
[2016-05-16 16:07] VITALS: BP 152/83; PULSE 69; RESP 18; TEMP 99.2; O2SAT 98
[2016-05-16 19:53] VITALS: BP 159/77; PULSE 72; RESP 16; TEMP 98.5; O2SAT 98
[2016-05-16] MEDS: LACTATED RINGER'S 1000 ML IV SCH (23:45)
[2016-05-16] MEDS ORDERED: SODIUM CHLORID 0.9% 500 ML IV SCH (23:45)
[2016-05-16] MEDS ORDERED: INSULIN HUMAN REGULAR 1,000 UNITS/10 ML VIAL SQ PRN (23:45)
[2016-05-17] MEDS: MORPHINE SULFATE 4 MG/ML INJ IV PRN (00:08)
[2016-05-17] MEDS: diphenhydrAMINE HCL 25 MG CAP PO PRN (00:08)
[2016-05-17 00:23] VITALS: BP 132/75; PULSE 74; RESP 17; TEMP 99.8; O2SAT 98
[2016-05-17 04:20] VITALS: BP 153/83; PULSE 72; RESP 17; TEMP 97.3; O2SAT 97
[2016-05-17] MEDS: PROPRANOLOL HCL 10 MG TAB PO SCH ×3 (06:13→21:30)
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
[2016-05-17 08:00] VITALS: BP 129/71; PULSE 71; RESP 18; TEMP 98.2; O2SAT 96
[2016-05-17] MEDS: SODIUM CHLORIDE 0.9% FLUSH 5 ML FLUSH IVF SCH (09:00)
[2016-05-17] MEDS: HEPARIN SODIUM - SQ 10,000 UNITS/ML VIAL SQ SCH ×2 (09:00→21:00)
[2016-05-17] MEDS: MULTIVITAMINS/MINERALS THERAPEUTIC TAB PO SCH (09:19)
[2016-05-17] MEDS: FERROUS SULFATE 325 MG (65 MG ELEMENTAL IRON) TAB PO SCH (09:19)
[2016-05-17] MEDS: DOCUSATE SODIUM 50 MG/SENNA 8.6 MG TAB PO SCH ×2 (09:19→21:30)
[2016-05-17] MEDS: PANTOPRAZOLE SOD 40 MG DELAYED RELEASE TAB PO SCH (09:19)
[2016-05-17] MEDS: THIAMINE HCL 100 MG TAB PO SCH (09:20)
[2016-05-17] MEDS: FOLIC ACID 1 MG TAB PO SCH (09:20)
[2016-05-17] MEDS: NICOTINE 21 MG/24 HR PATCH TD SCH (09:20)
[2016-05-17] MEDS: SODIUM CHLORIDE 0.9% FLUSH 5 ML FLUSH IV FLUSH SCH ×2 (09:21→21:30)
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
[2016-05-17 11:53] LABS: HCV RNA PCR LOGIU/ML 5.71 (())
[2016-05-17 12:07] VITALS: BP 131/76; PULSE 86; RESP 18; TEMP 98.6; O2SAT 95
[2016-05-17 13:11] LABS: INDIRECT BILIRUBIN 1.5 MG/DL (0.0-0.8); TOTAL BILIRUBIN ADULT 2.3 MG/DL (0.2-1.0)
[2016-05-17 15:59] LABS: AUTOMATED NEUTROPHIL # 4.6 TH/MM3 (1.8-7.7); BASOPHIL % 0.2 % (0.0-2.0); EOSINOPHIL # 0.1 TH/MM3 (0-0.4); EOSINOPHIL % 1.1 % (0.0-4.0); HEMATOCRIT 32.4 % (39.0-51.0); LYMPH % 11.2 % (9.0-44.0); LYMPHOCYTE # 0.7 TH/MM3 (1.0-4.8); MEAN CORPUSCULAR HEMOGLOBIN 29.6 PG (27.0-34.0); NEUT % 73.5 % (16.0-70.0); PLATELET COUNT 83 TH/MM3 (150-450); RED BLOOD COUNT 4.05 MIL/MM3 (4.50-5.90); RED CELL DISTRIBUTION WIDTH 14.7 % (11.6-17.2); WHITE BLOOD COUNT 6.3 TH/MM3 (4.0-11.0)
[2016-05-17 16:00] VITALS: BP 128/78; PULSE 91; RESP 18; TEMP 99.5; O2SAT 96
[2016-05-17 16:07] LABS: HEMO FLAGS AUTO DIFF
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
[2016-05-17 17:15] LABS: PLATELET ESTIMATE SMEAR LOW (NORMAL)
[2016-05-17 17:16] LABS: PLATELET MORPHOLOGY NORMAL (NORMAL); SCAN/DIFF AUTO DIFF CONFIRMED
[2016-05-17] MEDS: LACTULOSE SYRUP 20 GM/30 ML CUP PO SCH ×2 (17:51→21:30)
[2016-05-17 20:35] VITALS: BP 140/80; PULSE 86; RESP 18; TEMP 98.8; O2SAT 99
[2016-05-17 21:11] LABS: MEAN CORPUSCULAR HGB CONC 36.3 % (32.0-36.0)
[2016-05-17 23:52] LABS: INTRINSIC FACTOR BLOCKING AUTO POSITIVE (())
[2016-05-18] VITALS (10 sets, daily range): BP systolic 98–161; BP diastolic 54–84; PULSE 64–110; RESP 14–20; TEMP 97.8–101.2; O2SAT 93–99
[2016-05-18 05:38] LABS: EOSINOPHIL % 0.1 % (0.0-4.0); HEMATOCRIT 30.8 % (39.0-51.0); LYMPH % 4.3 % (9.0-44.0); LYMPHOCYTE # 0.3 TH/MM3 (1.0-4.8); MEAN CELL VOLUME 81.2 FL (80.0-100.0); MEAN CORPUSCULAR HEMOGLOBIN 29.5 PG (27.0-34.0); MONO % 7.4 % (0.0-8.0); NEUT % 88.2 % (16.0-70.0); PLATELET COUNT 71 TH/MM3 (150-450); RED CELL DISTRIBUTION WIDTH 14.6 % (11.6-17.2); WHITE BLOOD COUNT 6.8 TH/MM3 (4.0-11.0)
[2016-05-18 05:43] LABS: HEMO FLAGS AUTO DIFF
[2016-05-18] MEDS: PROPRANOLOL HCL 10 MG TAB PO SCH ×3 (06:29→22:01)
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
[2016-05-18 06:58] LABS: PLATELET ESTIMATE SMEAR LOW (NORMAL); PLATELET MORPHOLOGY NORMAL (NORMAL); SCAN/DIFF AUTO DIFF CONFIRMED
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
[2016-05-18] MEDS: DOCUSATE SODIUM 50 MG/SENNA 8.6 MG TAB PO SCH ×2 (09:00→19:40)
[2016-05-18] MEDS ORDERED: VANCOMYCIN INJ 1,250 MG in SODIUM CHLOR 0.9% 250 ML INJ 250 ML IV SCH (09:00)
[2016-05-18] MEDS: SODIUM CHLORIDE 0.9% FLUSH 5 ML FLUSH IV FLUSH SCH ×2 (09:00→19:40)
[2016-05-18] MEDS: THIAMINE HCL 100 MG TAB PO SCH (09:00)
[2016-05-18] MEDS: LACTULOSE SYRUP 20 GM/30 ML CUP PO SCH ×3 (09:00→19:39)
[2016-05-18] MEDS: HEPARIN SODIUM - SQ 10,000 UNITS/ML VIAL SQ SCH ×2 (09:00→19:40)
[2016-05-18] MEDS: NICOTINE 21 MG/24 HR PATCH TD SCH (09:00)
[2016-05-18] MEDS: FERROUS SULFATE 325 MG (65 MG ELEMENTAL IRON) TAB PO SCH (09:00)
[2016-05-18] MEDS: PANTOPRAZOLE SOD 40 MG DELAYED RELEASE TAB PO SCH (09:00)
[2016-05-18] MEDS: LORazepam 2 MG/ML VIAL IV PUSH PRN (09:39)
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
--- NOTE | 2016-05-18 10:27 | RADRPT ---
EXAM DATE/TIME: 05/18/2016 09:58 [facility] COMPARISON: No previous studies available for comparison. INDICATIONS : Seizure. RADIATION DOSE: 43.72 CTDIvol (mGy) MEDICAL HISTORY : Hypertension. SURGICAL HISTORY : None. ENCOUNTER: Initial ACUITY: 1 day PAIN SCALE: 0/10 LOCATION: cranial TECHNIQUE: Multiple contiguous axial images were obtained of the head. Using automated exposure control and adj ustment of the mA and/or kV according to patient size, radiation dose was kept as low as reasonably a chievable to obtain optimal diagnostic quality images. FINDINGS: CEREBRUM: There is some motion artifact. The ventricles are normal for age. No evidence of midline shift, mass lesion, hemorrhage or acute infarction. No extra-axial fluid collections are seen. POSTERIOR FOSSA: The cerebellum and brainstem are intact. The 4th ventricle is midline. The cerebellopontine angle i s unremarkable. EXTRACRANIAL: The visualized portion of the orbits is intact. SKULL: The calvaria is intact. No evidence of skull fracture. CONCLUSION: Motion artifact but grossly negative. No acute intracranial process to explain current clinical symptoms. Edi Mota MD on May 18, 2016 at 10:24 Board Certified Radiologist. This report was verified electronically.
[2016-05-18 10:48] LABS: AUTOMATED NEUTROPHIL # 9.8 TH/MM3 (1.8-7.7); BASOPHIL % 0.1 % (0.0-2.0); EOSINOPHIL % 0.1 % (0.0-4.0); HEMATOCRIT 32.4 % (39.0-51.0); LYMPH % 3.7 % (9.0-44.0); LYMPHOCYTE # 0.4 TH/MM3 (1.0-4.8); MEAN CELL VOLUME 85.5 FL (80.0-100.0); MEAN CORPUSCULAR HEMOGLOBIN 29.7 PG (27.0-34.0); MEAN CORPUSCULAR HGB CONC 34.7 % (32.0-36.0); MONO % 8.6 % (0.0-8.0); NEUT % 87.5 % (16.0-70.0); PLATELET COUNT 82 TH/MM3 (150-450); RED BLOOD COUNT 3.79 MIL/MM3 (4.50-5.90); RED CELL DISTRIBUTION WIDTH 14.9 % (11.6-17.2); WHITE BLOOD COUNT 11.2 TH/MM3 (4.0-11.0)
[2016-05-18 10:50] LABS: HEMO FLAGS AUTO DIFF
[2016-05-18 11:02] LABS: ALT (GPT) 35 U/L (12-78); ANION GAP 10 MEQ/L (5-15); AST (GOT) 31 U/L (15-37); BICARBONATE 24.1 MEQ/L (21.0-32.0); BLOOD UREA NITROGEN 22 MG/DL (7-18); CHLORIDE 97 MEQ/L (98-107); GLOMERULAR FILTRATION RATE 67 ML/MIN (>89); POTASSIUM 4.1 MEQ/L (3.5-5.1); SODIUM (NA) 131 MEQ/L (136-145)
[2016-05-18 11:03] LABS: ALKALINE PHOSPHATASE 70 U/L (45-117); TOTAL BILIRUBIN ADULT 3.7 MG/DL (0.2-1.0)
[2016-05-18] MEDS: MORPHINE SULFATE 4 MG/ML INJ IV PRN (11:14)
[2016-05-18 11:24] LABS: PLATELET ESTIMATE SMEAR LOW (NORMAL); PLATELET MORPHOLOGY NORMAL (NORMAL); SCAN/DIFF AUTO DIFF CONFIRMED
[2016-05-18 13:54] LABS: MITOCHONDRIAL ABS LESS THAN 20.0 U (())
[2016-05-18] MEDS ORDERED: Vancomycin Consult Pharmacy 1 EA OTHER SCH (17:30)
[2016-05-18] MEDS ORDERED: ACETAMINOPHEN 325 MG TAB PO PRN (17:45)
[2016-05-18] MEDS ORDERED: VANCOMYCIN INJ 1,000 MG in SODIUM CHLOR 0.9% 250 ML INJ 250 ML IV STA (18:11)
--- NOTE | 2016-05-18 18:48 | RADRPT ---
EXAM DATE/TIME: 05/18/2016 18:24 [facility] COMPARISON: CHEST SINGLE AP, May 11, 2016, 20:24. INDICATIONS : Fever starting today MEDICAL HISTORY : None. SURGICAL HISTORY : None. ENCOUNTER: Initial ACUITY: 1 day PAIN SCORE: 0/10 LOCATION: Bilateral chest FINDINGS: A single view of the chest demonstrates the lungs to be symmetrically aerated without evidence of mas s, infiltrate or effusion. The cardiomediastinal contours are unremarkable. Osseous structures are intact. CONCLUSION: No acute disease. Rafi Mota MD on May 18, 2016 at 18:45 Board Certified Radiologist. This report was verified electronically.
--- NOTE | 2016-05-18 18:51 | RADRPT ---
EXAM DATE/TIME: 05/18/2016 18:27 [facility] COMPARISON: KNEE LEFT LTD (1 OR 2VWS), May 12, 2016, 10:20. INDICATIONS : Evaluate left lower leg fracture MEDICAL HISTORY : None. SURGICAL HISTORY : Left lower leg external fixation ENCOUNTER: Subsequent ACUITY: 1 week PAIN SCORE: Non-responsive. LOCATION: Left proximal lower leg FINDINGS: There has been interval additional displacement of tibial plateau fracture with impaction of the late ral femoral condyle down into the central tibial plateau and fragmentation, compression and distal an d medial displacement of the fracture fragments. External fixator hardware is seen secured in the ernesto ntained via. CONCLUSION: Additional interval displacement of tibial plateau fractures as above Rafi Mota MD on May 18, 2016 at 18:47 Board Certified Radiologist. This report was verified electronically.
[2016-05-18] MEDS ORDERED: VANCOMYCIN 500 MG/NS 100 ML IV ONE ×2 (21:00)
[2016-05-18 21:10] LABS: MEAN CORPUSCULAR HGB CONC 36.7 % (32.0-36.0)
[2016-05-19] VITALS: BP 138/80; PULSE 87; RESP 16; TEMP 99; O2SAT 97
[2016-05-19] MEDS: LORazepam 2 MG/ML VIAL IV PUSH PRN ×2 (02:51→17:42)
[2016-05-19 05:22] LABS: MEAN CELL VOLUME 80.6 FL (80.0-100.0); MEAN CORPUSCULAR HEMOGLOBIN 29.6 PG (27.0-34.0); PLATELET COUNT 49 TH/MM3 (150-450); RED BLOOD COUNT 3.35 MIL/MM3 (4.50-5.90); RED CELL DISTRIBUTION WIDTH 14.4 % (11.6-17.2)
[2016-05-19 05:24] LABS: WHITE BLOOD COUNT 6.9 TH/MM3 (4.0-11.0)
[2016-05-19 05:25] LABS: HEMO FLAGS AUTO DIFF
[2016-05-19] MEDS: PROPRANOLOL HCL 10 MG TAB PO SCH ×3 (05:32→20:47)
--- NOTE | 2016-05-19 07:03 | PD.ORT.PN ---
Subjective Subjective Remarks Resting comfortably, difficult to arouse with no new complaints Objective Vitals Vital Signs Date Time Temp Pulse Resp B/P Pulse Ox O2 Delivery O2 Flow Rate FiO2 05/19/16 00:00 99.0 87 16 138/80 97 05/18/16 20:00 98.7 90 20 107/70 94 05/18/16 16:00 99.5 94 16 139/84 99 05/18/16 12:00 99.7 110 14 98/54 93 05/18/16 10:30 100.0 110 18 140/70 05/18/16 08:00 100.1 90 18 111/71 94 05/18/16 08:00 101.2 91 18 117/68 97 05/18/16 07:45 101.2 91 18 117/68 97 05/18/16 07:25 Room Air I/O 05/18/16 05/18/16 05/18/16 05/19/16 05/19/16 05/19/16 07:00 15:00 23:00 07:00 15:00 23:00 Intake Total 300 ml 480 ml 480 ml Output Total 250 ml 400 ml 300 ml Balance 50 ml 80 ml 180 ml Intake Oral 0 ml 480 ml 480 ml FFP 300 ml Output Urine Total 250 ml 400 ml 300 ml # Bowel Movements 1 Result Diagram: 05/19/16 0440 05/19/16 0440 Imaging Last 24 hours Impressions Abdomen/Pelvis CT 05/14/16 1218 Signed Impressions: Service Date/Time: Saturday, May 14, 2016 13:53 - CONCLUSION: 1. CT findings characteristic of cirrhosis with portal hypertension as evident by splenomegaly and extensive splenic hilar and short gastric varicosities. 2. Nonobstructing 7 mm calculus in the lower pole collecting system of the left kidney. 3. Extensive cholelithiasis. Edi Mota MD Objective Remarks LLE: +exfix. pin sites clean. NVI with good dorsiflexion. compartments soft. 1+ swelling Assessment & Plan Assessment and Plan POD # 7 s/p L leg tibial plateau fx with application of ex fix Pin care twice a day bed rest, NWB LLE heparin for dvt prop-- patient has hx of low platelet count Nothing by mouth after midnight possible Surgery tomorrow Huber Claudio Jr. May 19, 2016 07:03
[2016-05-19 08:00] VITALS: BP 116/67; PULSE 73; RESP 18; TEMP 98; O2SAT 97
[2016-05-19] MEDS: LACTULOSE SYRUP 20 GM/30 ML CUP PO SCH ×4 (09:00→20:47)
[2016-05-19] MEDS ORDERED: VANCOMYCIN INJ 1,250 MG in SODIUM CHLOR 0.9% 250 ML INJ 250 ML IV SCH (09:00)
[2016-05-19] MEDS: DOCUSATE SODIUM 50 MG/SENNA 8.6 MG TAB PO SCH ×2 (09:00→19:51)
[2016-05-19 09:58] LABS: BANDS 4 % (0-6); NEUTROPHIL # MANUAL DIFF 4.7 TH/MM3 (1.8-7.7); PLATELET ESTIMATE SMEAR LOW (NORMAL); PLATELET MORPHOLOGY NORMAL (NORMAL); POLYS (SEG NEUTROPHILS) 64 % (16-70); WBC DIFF SAMPLE 100
[2016-05-19 09:59] LABS: SCAN/DIFF FINAL DIFF MANUAL
[2016-05-19] MEDS: CYANOCOBALAMIN 1000 MCG/ML VIAL IM SCH (10:19)
[2016-05-19] MEDS: HEPARIN SODIUM - SQ 10,000 UNITS/ML VIAL SQ SCH ×2 (10:19→19:17)
[2016-05-19] MEDS: THIAMINE HCL 100 MG TAB PO SCH (10:19)
[2016-05-19] MEDS: FERROUS SULFATE 325 MG (65 MG ELEMENTAL IRON) TAB PO SCH (10:20)
[2016-05-19] MEDS: PANTOPRAZOLE SOD 40 MG DELAYED RELEASE TAB PO SCH (10:20)
[2016-05-19] MEDS: NICOTINE 21 MG/24 HR PATCH TD SCH (10:23)
[2016-05-19] MEDS: SODIUM CHLORIDE 0.9% FLUSH 5 ML FLUSH IV FLUSH SCH ×2 (10:23→20:48)
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
[2016-05-19] MEDS: levETIRAcetam 250 MG TAB PO SCH ×2 (11:45→20:47)
[2016-05-19 12:00] VITALS: BP 110/67; PULSE 73; RESP 19; TEMP 97.5; O2SAT 100
[2016-05-19 16:00] VITALS: BP 120/64; PULSE 77; RESP 18; TEMP 98.7; O2SAT 100
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
[2016-05-19] MEDS: LACTATED RINGER'S 1000 ML IV SCH (19:52)
[2016-05-19 21:10] VITALS: BP 114/71; PULSE 80; RESP 17; TEMP 97.4; O2SAT 99
[2016-05-20 00:11] VITALS: BP 118/70; PULSE 75; RESP 18; TEMP 96.5; O2SAT 100
--- NOTE | 2016-05-20 04:11 | MG ---
cc: JOSE MOYER MD Sex: [id number] DATE OF STUDY: 05/19/2016 DATE OF : 1955 HISTORY: A 60-year-old with history of confusion, seizure. Generalized slowing, 1-3 Hz delta activity with superimposed beta theta frequencies 20 to 50 microvolts. Synchronous delta in addition to asynchrony, posterior rhythm incremented up to 5-6 Hz following the generalized slowing. Paroxysmal bursts of 1 to 3 Hz delta activity. Limited driving with photic stimulation. Small sharp transient degenerated on epoch 102. Single lead EKG showing sinus rhythm. INTERPRETATION Mild to moderate encephalopathy and sleep state. Clinical correlation. Jose Moyer MD MG/JIM /11:02 PM /4:04 AM
[2016-05-20 04:40] VITALS: BP 115/72; PULSE 84; RESP 18; TEMP 97.6; O2SAT 96
[2016-05-20] MEDS: PROPRANOLOL HCL 10 MG TAB PO SCH ×3 (05:24→21:29)
[2016-05-20 06:10] LABS: BASOPHIL % 0.3 % (0.0-2.0); EOSINOPHIL % 0.8 % (0.0-4.0); HEMATOCRIT 30.5 % (39.0-51.0); LYMPH % 14.9 % (9.0-44.0); LYMPHOCYTE # 0.6 TH/MM3 (1.0-4.8); MEAN CELL VOLUME 82.5 FL (80.0-100.0); MEAN CORPUSCULAR HEMOGLOBIN 29.7 PG (27.0-34.0); MONO % 14.9 % (0.0-8.0); NEUT % 69.1 % (16.0-70.0); PLATELET COUNT 68 TH/MM3 (150-450); RED CELL DISTRIBUTION WIDTH 14.6 % (11.6-17.2); WHITE BLOOD COUNT 4.3 TH/MM3 (4.0-11.0)
[2016-05-20 06:15] LABS: BICARBONATE 27.6 MEQ/L (21.0-32.0); POTASSIUM 3.6 MEQ/L (3.5-5.1)
[2016-05-20 06:19] LABS: HEMO FLAGS DIFF FINAL
--- NOTE | 2016-05-20 06:52 | PD.ORT.PN ---
Subjective Subjective Remarks s/p MCA with application of exfix left tibial plateau by Dr Abrams patient improving. awke and alert. Objective Vitals Vital Signs Date Time Temp Pulse Resp B/P Pulse Ox O2 Delivery O2 Flow Rate FiO2 05/20/16 04:40 97.6 84 18 115/72 96 05/20/16 04:16 18 05/20/16 00:11 96.5 75 18 118/70 100 05/19/16 21:10 97.4 80 17 114/71 99 05/19/16 19:14 Room Air 05/19/16 16:00 98.7 77 18 120/64 100 05/19/16 12:00 97.5 73 19 110/67 100 05/19/16 08:00 98.0 73 18 116/67 97 I/O 05/19/16 05/19/16 05/19/16 05/20/16 05/20/16 05/20/16 07:00 15:00 23:00 07:00 15:00 23:00 Intake Total 427 ml 840 ml 480 ml Output Total 900 ml 600 ml Balance 427 ml -60 ml -120 ml Intake Oral 840 ml 480 ml IV Total 427 ml Output Urine Total 900 ml 600 ml # Bowel Movements 0 0 Result Diagram: 05/20/16 0533 05/20/16 0533 Imaging Last 24 hours Impressions Abdomen/Pelvis CT 05/14/16 1218 Signed Impressions: Service Date/Time: Saturday, May 14, 2016 13:53 - CONCLUSION: 1. CT findings characteristic of cirrhosis with portal hypertension as evident by splenomegaly and extensive splenic hilar and short gastric varicosities. 2. Nonobstructing 7 mm calculus in the lower pole collecting system of the left kidney. 3. Extensive cholelithiasis. Edi Mota MD Objective Remarks LLE: +exfix. pin sites clean. NVI with good dorsiflexion. compartments soft. 1+ swelling Assessment & Plan Assessment and Plan POD # 8 s/p L leg tibial plateau fx with application of ex fix Pin care twice a day bed rest, NWB LLE heparin for dvt prop-- patient has hx of low platelet count Nothing by mouth after midnight possible Surgery tomorrow -surgery this morning -1 unit platelets stat Faizan Haywood May 20, 2016 06:52
[2016-05-20] MEDS ORDERED: SODIUM CHLOR 0.9% 250 ML INJ 250 ML IV ONE (07:00)
[2016-05-20] MEDS ORDERED: ceFAZolin INJ 1,000 MG VIAL ONE (07:23)
[2016-05-20] MEDS ORDERED: VANCOMYCIN HCL 1000 MG VIAL ONE (07:23)
[2016-05-20] MEDS ORDERED: GENTAMICIN SULFATE 80 MG/2 ML VIAL XX ONE (07:28)
[2016-05-20] MEDS ORDERED: methylPREDNISolone SOD SUCC 125 MG/2 ML VIAL ONE (07:57)
[2016-05-20] MEDS ORDERED: diphenhydrAMINE HCL 50 MG/ML VIAL ONE (07:57)
[2016-05-20] MEDS: CYANOCOBALAMIN 1000 MCG/ML VIAL IM SCH (09:00)
[2016-05-20] MEDS: LACTULOSE SYRUP 20 GM/30 ML CUP PO SCH ×4 (09:00→21:16)
[2016-05-20] MEDS: THIAMINE HCL 100 MG TAB PO SCH (09:00)
[2016-05-20] MEDS: PANTOPRAZOLE SOD 40 MG DELAYED RELEASE TAB PO SCH (09:00)
[2016-05-20] MEDS: DOCUSATE SODIUM 50 MG/SENNA 8.6 MG TAB PO SCH ×2 (09:00→21:00)
[2016-05-20] MEDS: FERROUS SULFATE 325 MG (65 MG ELEMENTAL IRON) TAB PO SCH (09:00)
[2016-05-20] MEDS: HEPARIN SODIUM - SQ 10,000 UNITS/ML VIAL SQ SCH ×2 (09:00→21:17)
--- NOTE | 2016-05-20 09:40 | PD.OP ---
cc: Maninder Wynn MD Operative Report Date of Surgery: May 20, 2016 Preoperative Diagnosis: Comminuted bicondylar left tibial plateau fracture Postoperative Diagnosis: Procedure: Removal of external fixation, open reduction internal fixation left bicondylar tibial plateau fracture Anesthesia: Gen. Surgeon: Maninder Wynn Erp Manager(s): RODOLFO Tanner PA-C The surgical procedure was assisted by my physician registered dental assistant rda. My P.A. presence was necessary throughout this case for the manipulation and positioning of the surgical extremity. My P.A. was assisting me throughout the duration of this procedure. The skill set of a physician registered dental assistant rda was medically necessary to complete this procedure. During the surgical case the rn surgical was working at the back table and the physician registered dental assistant rda was directly assisting me. Operation and Findings: This patient was seen and evaluated preoperatively. Patient sustained an injury resulting a bicondylar right tibial plateau fracture. Informed consent was obtained preoperatively after detailed discussion of the risks and benefits of surgery. Risk of surgery including bleeding, infection, nonunion, painful hardware, stiffness, loss of motion, arthritis, need for knee replacement, as well as medical complications including blood clots, stroke, heart attack, and were discussed. I also discussed the possibility of using allograft bone graft . Preoperatively the operative site was marked. Patient was brought to the operating room and placed on the operating room table. Intravenous sedation and general endotracheal anesthesia were administered. IV antibiotics were given and a time out procedure was preformed. Procedure began with removal of the external fixator. Clamps were loosened. Bars and clamps were now removed. The pins were left in place. Next,the operative leg was prepped with alcohol followed by Hibiclens and draped in the usual sterile fashion. Attention was now turned towards the medial side of the tibial plateau. A 6 inch incision was made over the posterior medial aspect of the tibial plateau. Saphenous vein was protected. The PES insertion was elevated to expose the posterior medial tibial plateau. Fracture was visualized. Attention was now turned toward reduction. Traction was applied. Fracture was manipulated. Fracture keyed in excellent alignment along the inferior cortex. A fracture tenaculum was used to compress fracture. K wires were used for provisional fixation. Fluoroscopy confirmed excellent alignment of fracture. Next attention was turned towards the articular surface. There was depression of the central and lateral articular surface. A window was made in the medial metaphysis. Bone tamps were used to elevate the articular surface. Fracture fragments were manipulated to achieve the best reduction possible. 30 cc of cancellus bone chips were now packed underneath the articular surface. A periarticular clamp was used to compress the medial and lateral tibial plateau fragments. Good compression was obtained. A Synthes plate was now placed along the posterior medial tibial plateau. Plate was provisionally held to bone with K wires. Fluoroscopy confirmed plate placement. 3.5 cortical screws were used to compress plate to bone. Additional locking screws were placed proximally. An additional cortical screws were placed into the tibia shaft. Additional 3.5 cortical lag screws were placed proximal to the plate. K-wires were removed. Final fluoroscopy showed excellent alignment of fracture with well-placed hardware. The incision was thoroughly irrigated. Incisions were thoroughly irrigated. Attention was now turned to closure. Fascia was closed with #1 Vicryl,. Subcutaneous tissues closed with 3-0 Vicryl and skin was closed with mary. Sterile dressings were applied. The patient was transferred to recovery in stable condition. Maninder Wynn MD May 20, 2016 09:40
[2016-05-20] MEDS ORDERED: MISCELLANEOUS NURSING INFORMATION XX PRN (09:45)
[2016-05-20] MEDS ORDERED: SODIUM CHLORIDE 0.9% FLUSH 5 ML FLUSH IVF PRN (09:45)
[2016-05-20] MEDS ORDERED: diphenhydrAMINE HCL 25 MG CAP PO PRN (09:45)
[2016-05-20] MEDS ORDERED: Post-op Orders (for Pharmacy) MISC XX ONE (09:45)
[2016-05-20] MEDS ORDERED: DO NOT ADM ANY ANTICOAGULANT DRUGS XX PRN (09:52)
[2016-05-20] MEDS ORDERED: fentaNYL CITRATE 250 MCG/5 ML AMP ONE (10:04)
[2016-05-20] MEDS ORDERED: *morphine SULFATE 8 MG/ML PERIprocedure ONLY ONE (10:11)
--- NOTE | 2016-05-20 10:12 | RADRPT ---
EXAM DATE/TIME: 05/20/2016 09:17 [facility] COMPARISON: TIBIA/FIBULA LEFT (AP/LAT), May 18, 2016, 18:27. INDICATIONS : Left tibia fracture. ORIF. MEDICAL HISTORY : None. SURGICAL HISTORY : Left tibia. ENCOUNTER: Initial ACUITY: 1 day PAIN SCORE: Non-responsive. LOCATION: Left tibia. FINDINGS: Fluoroscopic views of the postoperative left knee demonstrate surgical plate and screws traversing a medial and lateral tibial fracture with good anatomic alignment. CONCLUSION: Status post ORIF of a tibial plateau fracture with good anatomic alignment. Bertha Lala MD on May 20, 2016 at 10:08 Board Certified Radiologist. This report was verified electronically.
[2016-05-20] MEDS: levETIRAcetam 250 MG TAB PO SCH ×2 (11:28→21:14)
[2016-05-20] MEDS: MORPHINE SULFATE 4 MG/ML INJ IV PRN (11:29)
[2016-05-20] MEDS: ONDANSETRON HCL 4 MG/2 ML VIAL IV PRN (11:29)
[2016-05-20] MEDS: NICOTINE 21 MG/24 HR PATCH TD SCH (11:29)
[2016-05-20] MEDS: ceFAZolin 2 GM PREMIX 50 ML IV SCH ×2 (11:30→21:13)
[2016-05-20] MEDS: SODIUM CHLORIDE 0.9% FLUSH 5 ML FLUSH IV FLUSH SCH ×2 (11:31→21:00)
[2016-05-20] MEDS: LACTATED RINGER'S 1000 ML INJ 1,000 ML IV SCH ×2 (11:33→21:14)
[2016-05-20 12:00] VITALS: BP 133/87; PULSE 94; RESP 18; TEMP 97.4; O2SAT 97
[2016-05-20] MEDS ORDERED: ePHEDrine/NS 25 MG/5 ML SYR IV ONE (12:13)
[2016-05-20] MEDS ORDERED: PROPOFOL 200 MG/20 ML AMP IV ONE (12:13)
[2016-05-20] MEDS ORDERED: LACTATED RINGER'S 1000 ML INJ 1,000 ML IV ONE (12:13)
[2016-05-20] MEDS ORDERED: PHENYLEPH/NS 1000 MCG/10 ML SYR IV ONE (12:13)
[2016-05-20] MEDS ORDERED: ONDANSETRON HCL 4 MG/2 ML VIAL IV PUSH ONE (12:13)
[2016-05-20] MEDS: ERGOCALCIFEROL (VIT D2) 50,000 UNIT CAP PO SCH (14:12)
[2016-05-20] MEDS: CALCIUM/VITAMIN D 250 MG/125 U TAB PO SCH ×2 (14:12→17:58)
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
--- NOTE | 2016-05-20 15:01 | HHI.PR ---
Addendum to Inpatient Note Addendum Reason: Additional Documentation Additional Information Procalcitonin level normal SIRS non infectious. No fevers off antibiotics. Will sign off please call back if any change in clinical condition or questions. Katie Somers MD May 20, 2016 15:01
[2016-05-20 16:00] VITALS: BP 117/73; PULSE 84; RESP 19; TEMP 97.8; O2SAT 99
[2016-05-20 20:40] VITALS: BP 142/83; PULSE 93; RESP 18; TEMP 96.6; O2SAT 100
[2016-05-20] MEDS ORDERED: PHARMACY ORDERED LAB XX ONE (20:45)
[2016-05-20] MEDS: SODIUM CHLORIDE 0.9% FLUSH 5 ML FLUSH IVF SCH (21:00)
[2016-05-20] MEDS: VANCOMYCIN INJ 1,000 MG in SODIUM CHLOR 0.9% 250 ML INJ 250 ML IV SCH (21:14)
[2016-05-20 23:30] VITALS: BP 137/81; PULSE 92; RESP 18; TEMP 96.2; O2SAT 97
[2016-05-20] MEDS: LACTATED RINGER'S 1000 ML IV SCH (23:45)
[2016-05-21] MEDS: MORPHINE SULFATE 4 MG/ML INJ IV PRN ×6 (02:04→20:30)
[2016-05-21] MEDS: ONDANSETRON HCL 4 MG/2 ML VIAL IV PRN (02:04)
[2016-05-21] MEDS: ceFAZolin 2 GM PREMIX 50 ML IV SCH ×3 (03:48→20:30)
[2016-05-21 04:25] VITALS: BP 141/81; PULSE 92; RESP 18; TEMP 97; O2SAT 100
[2016-05-21] MEDS: PROPRANOLOL HCL 10 MG TAB PO SCH ×3 (05:52→20:29)
[2016-05-21] MEDS: LACTATED RINGER'S 1000 ML INJ 1,000 ML IV SCH ×2 (05:52→15:10)
[2016-05-21] MEDS ORDERED: GABA600T PO (06:06)
[2016-05-21] MEDS ORDERED: MELACAP (06:06)
[2016-05-21] MEDS ORDERED: AMLO5TAB2 PO (06:06)
[2016-05-21] MEDS ORDERED: FENT50DI T-DERMAL (06:06)
[2016-05-21] MEDS ORDERED: ZANA6CAP PO (06:06)
[2016-05-21] MEDS ORDERED: POTA8CAP PO (06:06)
[2016-05-21] MEDS ORDERED: ALPR.5 PO (06:06)
--- NOTE | 2016-05-21 06:40 | PD.ORT.PN ---
Subjective Subjective Remarks Comminuted left tibial plateau fracture status post ORIF on 05/20/2016. Patient relatively comfortable. No complaints Objective Vitals Vital Signs Date Time Temp Pulse Resp B/P Pulse Ox O2 Delivery O2 Flow Rate FiO2 05/21/16 04:25 97.0 92 18 141/81 100 05/20/16 23:30 96.2 92 18 137/81 97 05/20/16 20:40 96.6 93 18 142/83 100 05/20/16 18:57 Room Air 05/20/16 16:00 97.8 84 19 117/73 99 05/20/16 12:00 97.4 94 18 133/87 97 05/20/16 10:21 Nasal Cannula 2.00 05/20/16 10:15 98.2 84 14 143/88 99 Nasal Cannula 2 05/20/16 10:00 85 14 149/82 99 Nasal Cannula 2 05/20/16 09:52 98.2 84 14 150/86 99 Nasal Cannula 4 05/20/16 06:55 Room Air I/O 05/20/16 05/20/16 05/20/16 05/21/16 05/21/16 05/21/16 06:59 14:59 22:59 06:59 14:59 22:59 Intake Total 480 ml 1579 ml 1527 ml 894 ml Output Total 600 ml 385 ml 1150 ml 30 ml Balance -120 ml 1194 ml 377 ml 864 ml Intake Oral 480 ml 960 ml IV Total 203 ml 567 ml 894 ml Platelets 176 ml Other 1200 ml Output Urine Total 600 ml 175 ml 1100 ml Drainage Total 60 ml 50 ml 30 ml Estimated Blood Loss 150 ml # Bowel Movements 0 0 Result Diagram: 05/20/16 0533 05/20/16 0533 Imaging Last 24 hours Impressions Abdomen/Pelvis CT 05/14/16 1218 Signed Impressions: Service Date/Time: Saturday, May 14, 2016 13:53 - CONCLUSION: 1. CT findings characteristic of cirrhosis with portal hypertension as evident by splenomegaly and extensive splenic hilar and short gastric varicosities. 2. Nonobstructing 7 mm calculus in the lower pole collecting system of the left kidney. 3. Extensive cholelithiasis. Edi Mota MD Objective Remarks LLE: Dressings are clean and dry . NVI with good dorsiflexion. compartments soft. 1+ swelling. Sensation intact left foot Assessment & Plan Assessment and Plan POD # 1 s/p L leg tibial plateau fx ORIF NWB LLE heparin for dvt prop-- patient has hx of low platelet count Patient has a friend who is planning to pick him up and a Van and return him home to [place]--plan on possible discharge Saturday if medically cleared Maninder Whittington MD May 21, 2016 06:40
[2016-05-21 07:17] LABS: HEMATOCRIT 26.3 % (39.0-51.0)
[2016-05-21 07:36] LABS: REVIEW FLAG FINAL
[2016-05-21 08:00] VITALS: BP 139/76; PULSE 79; RESP 18; TEMP 97.4; O2SAT 98
[2016-05-21] MEDS: LACTULOSE SYRUP 20 GM/30 ML CUP PO SCH (08:30)
[2016-05-21] MEDS: FERROUS SULFATE 325 MG (65 MG ELEMENTAL IRON) TAB PO SCH (08:30)
[2016-05-21] MEDS: CALCIUM/VITAMIN D 250 MG/125 U TAB PO SCH ×3 (08:31→16:40)
[2016-05-21] MEDS: NICOTINE 21 MG/24 HR PATCH TD SCH (08:31)
[2016-05-21] MEDS: CHOLECALCIFEROL (VIT D3) 1000 UNIT TAB PO SCH (08:31)
[2016-05-21] MEDS: CYANOCOBALAMIN 1000 MCG/ML VIAL IM SCH (08:32)
[2016-05-21] MEDS: levETIRAcetam 250 MG TAB PO SCH ×2 (08:32→20:30)
[2016-05-21] MEDS: THIAMINE HCL 100 MG TAB PO SCH (08:32)
[2016-05-21] MEDS: DOCUSATE SODIUM 50 MG/SENNA 8.6 MG TAB PO SCH ×2 (08:32→20:31)
[2016-05-21] MEDS: VANCOMYCIN INJ 1,000 MG in SODIUM CHLOR 0.9% 250 ML INJ 250 ML IV SCH ×2 (08:33→20:32)
[2016-05-21] MEDS: SODIUM CHLORIDE 0.9% FLUSH 5 ML FLUSH IVF SCH ×2 (08:33→19:50)
[2016-05-21] MEDS: SODIUM CHLORIDE 0.9% FLUSH 5 ML FLUSH IV FLUSH SCH ×2 (08:33→20:31)
[2016-05-21] MEDS: PANTOPRAZOLE SOD 40 MG DELAYED RELEASE TAB PO SCH (08:33)
[2016-05-21] MEDS: HEPARIN SODIUM - SQ 10,000 UNITS/ML VIAL SQ SCH ×2 (08:34→20:31)
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
[2016-05-21 12:00] VITALS: BP 119/71; PULSE 83; RESP 18; TEMP 97.5; O2SAT 98
[2016-05-21] MEDS: SODIUM CHLORIDE 0.9% FLUSH 5 ML FLUSH IV FLUSH PRN (15:10)
[2016-05-21 16:00] VITALS: BP 122/75; PULSE 84; RESP 17; TEMP 98.2; O2SAT 100
[2016-05-21 19:50] VITALS: BP 131/68; PULSE 88; RESP 17; TEMP 95.7; O2SAT 97
[2016-05-21 21:08] LABS: MEAN CORPUSCULAR HGB CONC 36.6 % (32.0-36.0)
[2016-05-21] MEDS: LACTATED RINGER'S 1000 ML IV SCH (23:45)
[2016-05-22] MEDS: MORPHINE SULFATE 4 MG/ML INJ IV PRN ×7 (00:33→21:13)
[2016-05-22 00:48] VITALS: BP 125/71; PULSE 77; RESP 17; TEMP 98.6; O2SAT 98
[2016-05-22] MEDS: ceFAZolin 2 GM PREMIX 50 ML IV SCH (03:33)
[2016-05-22] MEDS: PROPRANOLOL HCL 10 MG TAB PO SCH ×3 (04:24→21:13)
[2016-05-22 04:44] VITALS: BP 121/72; PULSE 88; RESP 18; TEMP 96.9; O2SAT 98
[2016-05-22 06:11] LABS: AUTOMATED NEUTROPHIL # 2.6 TH/MM3 (1.8-7.7); BASOPHIL % 0.2 % (0.0-2.0); EOSINOPHIL % 0.7 % (0.0-4.0); HEMATOCRIT 25.6 % (39.0-51.0); LYMPH % 15.1 % (9.0-44.0); LYMPHOCYTE # 0.6 TH/MM3 (1.0-4.8); MEAN CELL VOLUME 81.4 FL (80.0-100.0); MEAN CORPUSCULAR HEMOGLOBIN 29.8 PG (27.0-34.0); MONO % 15.4 % (0.0-8.0); NEUT % 68.6 % (16.0-70.0); PLATELET COUNT 70 TH/MM3 (150-450); RED BLOOD COUNT 3.15 MIL/MM3 (4.50-5.90); RED CELL DISTRIBUTION WIDTH 14.4 % (11.6-17.2); WHITE BLOOD COUNT 3.7 TH/MM3 (4.0-11.0)
[2016-05-22 06:33] LABS: HEMO FLAGS AUTO DIFF
[2016-05-22 08:00] VITALS: BP 136/73; PULSE 86; RESP 16; TEMP 98; O2SAT 97
[2016-05-22] MEDS: SODIUM CHLORIDE 0.9% FLUSH 5 ML FLUSH IVF SCH ×2 (08:32→20:06)
[2016-05-22] MEDS: NICOTINE 21 MG/24 HR PATCH TD SCH (08:32)
[2016-05-22] MEDS: THIAMINE HCL 100 MG TAB PO SCH (08:32)
[2016-05-22] MEDS: FERROUS SULFATE 325 MG (65 MG ELEMENTAL IRON) TAB PO SCH (08:32)
[2016-05-22] MEDS: SODIUM CHLORIDE 0.9% FLUSH 5 ML FLUSH IV FLUSH SCH ×2 (08:32→21:12)
[2016-05-22] MEDS: DOCUSATE SODIUM 50 MG/SENNA 8.6 MG TAB PO SCH ×2 (08:32→21:00)
[2016-05-22] MEDS: CHOLECALCIFEROL (VIT D3) 1000 UNIT TAB PO SCH (08:33)
[2016-05-22] MEDS: HEPARIN SODIUM - SQ 10,000 UNITS/ML VIAL SQ SCH ×2 (08:33→21:13)
[2016-05-22] MEDS: CALCIUM/VITAMIN D 250 MG/125 U TAB PO SCH ×3 (08:33→15:59)
[2016-05-22] MEDS: CYANOCOBALAMIN 1000 MCG/ML VIAL IM SCH (08:33)
[2016-05-22] MEDS: levETIRAcetam 250 MG TAB PO SCH ×2 (08:33→21:11)
[2016-05-22] MEDS: PANTOPRAZOLE SOD 40 MG DELAYED RELEASE TAB PO SCH (08:33)
[2016-05-22 08:49] LABS: SCAN/DIFF AUTO DIFF CONFIRMED
[2016-05-22] MEDS ORDERED: LACTULOSE SYRUP 20 GM/30 ML CUP PO PRN (09:00)
--- NOTE | 2016-05-22 09:44 | PD.ORT.PN ---
Subjective Subjective Remarks Resting comfortably Objective Vitals Vital Signs Date Time Temp Pulse Resp B/P Pulse Ox O2 Delivery O2 Flow Rate FiO2 05/22/16 04:44 96.9 88 18 121/72 98 05/22/16 00:48 98.6 77 17 125/71 98 05/21/16 19:50 95.7 88 17 131/68 97 05/21/16 16:00 98.2 84 17 122/75 100 05/21/16 12:00 97.5 83 18 119/71 98 I/O 05/21/16 05/21/16 05/21/16 05/22/16 05/22/16 05/22/16 07:00 15:00 23:00 07:00 15:00 23:00 Intake Total 894 ml 1803 ml 240 ml 360 ml Output Total 30 ml 1210 ml 151 ml 450 ml Balance 864 ml 593 ml 89 ml -90 ml Intake Oral 1200 ml 240 ml 360 ml IV Total 894 ml 603 ml Output Urine Total 1200 ml 151 ml 425 ml Drainage Total 30 ml 10 ml 25 ml # Voids 0 1 # Bowel Movements 1 0 0 Result Diagram: 05/22/16 0543 05/20/16 0533 Imaging Last 24 hours Impressions Abdomen/Pelvis CT 05/14/16 1218 Signed Impressions: Service Date/Time: Saturday, May 14, 2016 13:53 - CONCLUSION: 1. CT findings characteristic of cirrhosis with portal hypertension as evident by splenomegaly and extensive splenic hilar and short gastric varicosities. 2. Nonobstructing 7 mm calculus in the lower pole collecting system of the left kidney. 3. Extensive cholelithiasis. Edi Mota MD Objective Remarks LLE: Dressings are clean and dry . Incisions well approximated and healing well NVI with good dorsiflexion. compartments soft. 1+ swelling. Sensation intact left foot Assessment & Plan Assessment and Plan POD # 2 s/p L leg tibial plateau fx ORIF NWB LLE Knee immobilizer at all times except for physical therapy passive range of motion from 0-90 with no active leglifts or quad sets Daily dressing changes with Xeroform heparin for dvt prop-- patient has hx of low platelet count Patient has a friend who is planning to pick him up and a Van and return him home to [place]--plan on possible discharge Saturday if medically cleared Huber Claudio Jr. May 22, 2016 09:44
[2016-05-22] MEDS ORDERED: VITA100018 PO (09:49)
[2016-05-22] MEDS ORDERED: OXYC-395 PO (09:49)
[2016-05-22] MEDS ORDERED: OYST250T4 PO (09:49)
[2016-05-22] MEDS: LACTATED RINGER'S 1000 ML INJ 1,000 ML IV SCH ×2 (10:49→20:31)
[2016-05-22 12:00] VITALS: BP 107/60; PULSE 87; RESP 17; TEMP 97.6; O2SAT 100
[2016-05-22] MEDS: SODIUM CHLORIDE 0.9% FLUSH 5 ML FLUSH IV FLUSH PRN ×3 (12:22→18:12)
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
[2016-05-22 15:55] VITALS: BP 135/78; PULSE 81; RESP 18; TEMP 97.6; O2SAT 98
[2016-05-22 20:22] VITALS: BP 123/72; PULSE 85; RESP 17; TEMP 98.4; O2SAT 98
[2016-05-22] MEDS: LACTATED RINGER'S 1000 ML IV SCH (20:31)
[2016-05-22 21:06] LABS: MEAN CORPUSCULAR HGB CONC 36.6 % (32.0-36.0)
[2016-05-22] MEDS: TEMAZEPAM 15 MG CAP PO PRN (21:19)
[2016-05-23 00:15] VITALS: BP 128/74; PULSE 81; RESP 17; TEMP 99; O2SAT 98
[2016-05-23 04:51] VITALS: BP 124/74; PULSE 86; RESP 17; TEMP 98.6; O2SAT 99
[2016-05-23] MEDS: PROPRANOLOL HCL 10 MG TAB PO SCH ×3 (04:53→21:27)
[2016-05-23 06:15] LABS: AUTOMATED NEUTROPHIL # 2.4 TH/MM3 (1.8-7.7); BASOPHIL % 0.3 % (0.0-2.0); EOSINOPHIL # 0.1 TH/MM3 (0-0.4); EOSINOPHIL % 1.5 % (0.0-4.0); LYMPH % 16.7 % (9.0-44.0); LYMPHOCYTE # 0.6 TH/MM3 (1.0-4.8); MEAN CELL VOLUME 81.5 FL (80.0-100.0); MEAN CORPUSCULAR HEMOGLOBIN 29.8 PG (27.0-34.0); MONO % 14.4 % (0.0-8.0); NEUT % 67.1 % (16.0-70.0); PLATELET COUNT 66 TH/MM3 (150-450); RED BLOOD COUNT 3.07 MIL/MM3 (4.50-5.90); RED CELL DISTRIBUTION WIDTH 14.6 % (11.6-17.2); WHITE BLOOD COUNT 3.5 TH/MM3 (4.0-11.0)
[2016-05-23 06:32] LABS: HEMO FLAGS AUTO DIFF
[2016-05-23 08:00] VITALS: BP 125/69; PULSE 89; RESP 18; TEMP 99.3; O2SAT 95
[2016-05-23 08:20] LABS: PLATELET ESTIMATE SMEAR LOW (NORMAL); PLATELET MORPHOLOGY NORMAL (NORMAL); SCAN/DIFF AUTO DIFF CONFIRMED
[2016-05-23] MEDS: CHOLECALCIFEROL (VIT D3) 1000 UNIT TAB PO SCH (08:40)
[2016-05-23] MEDS: CALCIUM/VITAMIN D 250 MG/125 U TAB PO SCH ×3 (08:40→17:40)
[2016-05-23] MEDS: levETIRAcetam 250 MG TAB PO SCH ×2 (08:40→20:13)
[2016-05-23] MEDS: DOCUSATE SODIUM 50 MG/SENNA 8.6 MG TAB PO SCH ×2 (08:40→20:13)
[2016-05-23] MEDS: FERROUS SULFATE 325 MG (65 MG ELEMENTAL IRON) TAB PO SCH (08:40)
[2016-05-23] MEDS: PANTOPRAZOLE SOD 40 MG DELAYED RELEASE TAB PO SCH (08:40)
[2016-05-23] MEDS: CYANOCOBALAMIN 1000 MCG/ML VIAL IM SCH (08:41)
[2016-05-23] MEDS: NICOTINE 21 MG/24 HR PATCH TD SCH (08:41)
[2016-05-23] MEDS: THIAMINE HCL 100 MG TAB PO SCH (08:42)
[2016-05-23] MEDS: SODIUM CHLORIDE 0.9% FLUSH 5 ML FLUSH IVF SCH ×2 (08:51→20:14)
[2016-05-23] MEDS: SODIUM CHLORIDE 0.9% FLUSH 5 ML FLUSH IV FLUSH SCH ×2 (08:51→20:14)
--- NOTE | 2016-05-23 09:23 | HHI.PR ---
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; recently added; mildly elevated nh3 recs doing well neuro stable continue kera for now; may d/c in future, outpatient no driving/climbing heights x 6 months of sz free status (2) B12 deficiency Plan: b12 replacement (3) Fracture of proximal end of tibia Plan: followed by ortho Subjective Subjective Comments No acute events reported; slept well last night No headache no sz No chest pain No dyspnea Active Medications Current Medications Medications (Trade) Dose Ordered Sig/Juan Carlos Route Start Time Stop Time Status Last Admin (Dulcolax Supp) 10 mg DAILY PRN CA 05/11/16 21:00 (Morphine Inj) 2 mg Q3H PRN IV 05/11/16 21:00 05/22/16 21:13 (Nessa-Colace) 1 tab BID PO 05/12/16 21:00 05/23/16 08:40 (Milk Of Magnesia Liq) 10 ml Q12H PRN PO 05/12/16 10:00 05/15/16 01:24 Miscellaneous Information UNSCH PRN XX 05/12/16 10:00 (NS Flush) 2 ml UNSCH PRN IV FLUSH 05/12/16 12:00 05/22/16 18:12 (NS Flush) 2 ml BID IV FLUSH 05/12/16 21:00 05/23/16 08:51 (Vitamin B1) 100 mg DAILY PO 05/12/16 12:00 05/23/16 08:42 (Zofran Inj) 4 mg Q6H PRN IV 05/12/16 12:00 05/21/16 02:04 (Protonix) 40 mg DAILY PO 05/12/16 12:00 05/23/16 08:40 (Ativan Inj) 1 mg Q4H PRN IV PUSH 05/12/16 12:00 05/19/16 17:42 (Ativan Inj) 2 mg Q2H PRN IV PUSH 05/12/16 12:00 (Ativan Inj) 2 mg Q1H PRN IV PUSH 05/12/16 12:00 (Ativan Inj) 2 mg Q15M PRN IV PUSH 05/12/16 12:00 (Romazicon Inj) 0.2 mg Q1M PRN IV PUSH 05/12/16 12:00 (Ativan) 1 mg Q4H PRN PO 05/12/16 12:00 (Ativan) 2 mg Q2H PRN PO 05/12/16 12:00 (Habitrol 21 Mg Patch.24 Hr) 1 patch DAILY TD 05/12/16 15:45 05/23/16 08:41 (Ferrous Sulfate) 325 mg DAILY PO 05/15/16 09:00 05/23/16 08:40 (Inderal) 10 mg Q8HR PO 05/15/16 14:00 05/23/16 04:53 (Motrin) 400 mg Q6H PRN PO 05/15/16 11:30 (Narcan Inj) 0.4 mg UNSCH PRN IV 05/15/16 11:30 (Roxicodone) 15 mg Q4H PRN PO 05/16/16 12:45 05/23/16 08:41 Oxycodone HCl 10 mg 10 mg Q4H PRN PO 05/16/16 12:46 05/20/16 15:14 (Lr 1000 ml Inj) 1,000 ml @ 30 mls/hr Q24H IV 05/16/16 23:45 05/21/16 23:45 (Tylenol) 650 mg Q4H PRN PO 05/18/16 17:45 (Vitamin B12 Inj) 1,000 mcg DAILY IM 05/19/16 09:00 05/25/16 09:01 05/23/16 08:41 (Vitamin B12 Inj) 1,000 mcg Q7D IM 06/01/16 09:00 06/22/16 09:01 (Vitamin B12 Inj) 1,000 mcg Q30D IM 07/21/16 09:00 Levetriacetam 250 mg 250 mg Q12HR PO 05/19/16 11:45 05/23/16 08:40 (Lr 1000 ml Inj) 1,000 ml @ 80 mls/hr [id number] IV 05/20/16 09:32 05/21/16 15:10 (NS Flush) 2 ml UNSCH PRN IVF 05/20/16 09:45 (NS Flush) 2 ml BID IVF 05/20/16 21:00 Miscellaneous Information UNSCH PRN XX 05/20/16 09:45 (Oscal-D 250-125) 250 mg TID PO 05/20/16 13:00 05/23/16 08:40 (Benadryl) 25 mg Q6H PRN PO 05/20/16 09:45 (Vitamin D3) 1,000 units DAILY PO 05/21/16 09:00 05/23/16 08:40 (Drisdol) 50,000 units Q7D PO 05/20/16 10:00 05/20/16 14:12 (Lactulose Liq) 30 ml DAILY PRN PO 05/22/16 09:00 (Restoril) 15 mg HS PRN PO 05/22/16 13:30 05/22/16 21:19 Allergies Allergies Coded Allergies Iodine (Verified Allergy, Severe, Respiratory Failure, 05/12/16) Codeine (Verified Allergy, Unknown, 05/11/16) Darvocet-N 100 (Verified Allergy, Unknown, 05/11/16) Darvon (Verified Allergy, Unknown, 05/11/16) Review of Systems All other ROS: ROS reviewed as documented in chart Exam I&O / VS 05/22/16 05/22/16 05/23/16 15:00 23:00 07:00 Intake Total 2454 ml 120 ml 120 ml Output Total 800 ml 460 ml Balance 1654 ml -340 ml 120 ml Intake Oral 600 ml 120 ml 120 ml IV Total 1854 ml Output Urine Total 800 ml 460 ml # Voids 2 # Bowel Movements 0 0 0 Vital Signs Date Time Temp Pulse Resp B/P Pulse Ox O2 Delivery O2 Flow Rate FiO2 05/23/16 04:51 98.6 86 17 124/74 99 05/23/16 00:15 99.0 81 17 128/74 98 05/22/16 20:22 98.4 85 17 123/72 98 05/22/16 15:55 97.6 81 18 135/78 98 05/22/16 12:00 97.6 87 17 107/60 100 Exam Comments alert, ox 2-3. not to exact month, follows, eomi, face sym, rodriguez, left le in brace, able to lift rt>left leg to gravity Objective Micro and Labs Laboratory Tests Test 05/23/16 04:50 White Blood Count 3.5 Red Blood Count 3.07 Hemoglobin 9.1 Hematocrit 25.0 Mean Corpuscular Volume 81.5 Mean Corpuscular Hemoglobin 29.8 Mean Corpuscular Hemoglobin 36.6 Concent Red Cell Distribution Width 14.6 Platelet Count 66 Mean Platelet Volume 8.5 Neutrophils (%) (Auto) 67.1 Lymphocytes (%) (Auto) 16.7 Monocytes (%) (Auto) 14.4 Eosinophils (%) (Auto) 1.5 Basophils (%) (Auto) 0.3 Neutrophils # (Auto) 2.4 Lymphocytes # (Auto) 0.6 Monocytes # (Auto) 0.5 Eosinophils # (Auto) 0.1 Basophils # (Auto) 0.0 CBC Comment AUTO DIFF Differential Comment AUTO DIFF CONFIRMED Platelet Estimate LOW Platelet Morphology Comment NORMAL Polychromasia 2.0 Date/Time Procedure Status Source Growth 05/18/16 18:13 Aerobic Blood Culture - Preliminary Resulted Blood Peripheral NO GROWTH IN 4 DAYS 05/18/16 18:13 Anaerobic Blood Culture - Preliminary Resulted Blood Peripheral NO GROWTH IN 4 DAYS Problem Qualifiers (1) Fracture of proximal end of tibia: Qualified Code: S82.192A - Other closed fracture of proximal end of left tibia , initial encounter Claude Roberto MD May 23, 2016 09:23
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
[2016-05-23 12:00] VITALS: BP 120/74; PULSE 88; RESP 18; TEMP 98.4; O2SAT 96
[2016-05-23] MEDS: LACTATED RINGER'S 1000 ML INJ 1,000 ML IV SCH ×2 (12:32→23:06)
[2016-05-23] MEDS: LACTULOSE SYRUP 20 GM/30 ML CUP PO SCH ×3 (13:23→20:13)
[2016-05-23 16:00] VITALS: BP 127/80; PULSE 85; RESP 18; TEMP 97.7; O2SAT 98
[2016-05-23 20:00] VITALS: BP 134/72; PULSE 94; RESP 16; TEMP 96.7; O2SAT 96
[2016-05-23] MEDS: TEMAZEPAM 15 MG CAP PO PRN (20:13)
[2016-05-23] MEDS: LACTATED RINGER'S 1000 ML IV SCH (21:27)
[2016-05-24] VITALS: BP 121/72; PULSE 80; RESP 16; TEMP 97; O2SAT 98
[2016-05-24] MEDS: PROPRANOLOL HCL 10 MG TAB PO SCH ×3 (05:55→20:01)
--- NOTE | 2016-05-24 06:34 | PD.ORT.PN ---
Subjective Subjective Remarks POD 4 s/p ORIF left tibial plateau states has not been doing much with therapy. has made it to chair. reports calf pain Objective Vitals Vital Signs Date Time Temp Pulse Resp B/P Pulse Ox O2 Delivery O2 Flow Rate FiO2 05/24/16 00:00 97.0 80 16 121/72 98 05/23/16 20:00 96.7 94 16 134/72 96 05/23/16 16:00 97.7 85 18 127/80 98 05/23/16 12:00 98.4 88 18 120/74 96 05/23/16 08:00 99.3 89 18 125/69 95 I/O 05/23/16 05/23/16 05/23/16 05/24/16 05/24/16 05/24/16 07:00 15:00 23:00 07:00 15:00 23:00 Intake Total 120 ml 1200 ml 240 ml Output Total 350 ml Balance 120 ml 1200 ml -110 ml Intake Oral 120 ml 1200 ml 240 ml Output Urine Total 350 ml # Voids 2 3 # Bowel Movements 0 0 0 Result Diagram: 05/23/16 0450 05/20/16 0533 Imaging Last 24 hours Impressions Abdomen/Pelvis CT 05/14/16 1218 Signed Impressions: Service Date/Time: Saturday, May 14, 2016 13:53 - CONCLUSION: 1. CT findings characteristic of cirrhosis with portal hypertension as evident by splenomegaly and extensive splenic hilar and short gastric varicosities. 2. Nonobstructing 7 mm calculus in the lower pole collecting system of the left kidney. 3. Extensive cholelithiasis. Edi Mota MD Objective Remarks LLE: Dressings are clean and dry . Incisions well approximated and healing well NVI. limited active dorsiflexion. pain with passive dorsiflexion. +homans Assessment & Plan Assessment and Plan POD # 4 s/p L leg tibial plateau fx ORIF NWB LLE Knee immobilizer at all times except for physical therapy passive range of motion from 0-90 with no active leglifts or quad sets Daily dressing changes with Xeroform heparin for dvt prop-- patient has hx of low platelet count Patient has a friend who is planning to pick him up and a Van and return him home to [place]--plan on possible discharge Saturday if medically cleared -will order stat ultrasound of left leg to rule out DVT Haywood,Faizan Gabbi PA May 24, 2016 06:34
[2016-05-24 07:30] LABS: AUTOMATED NEUTROPHIL # 2.8 TH/MM3 (1.8-7.7); BASOPHIL % 0.4 % (0.0-2.0); EOSINOPHIL # 0.1 TH/MM3 (0-0.4); EOSINOPHIL % 1.7 % (0.0-4.0); LYMPH % 13.7 % (9.0-44.0); LYMPHOCYTE # 0.6 TH/MM3 (1.0-4.8); MEAN CELL VOLUME 82.3 FL (80.0-100.0); MEAN CORPUSCULAR HEMOGLOBIN 28.9 PG (27.0-34.0); MEAN CORPUSCULAR HGB CONC 35.1 % (32.0-36.0); MONO % 14.4 % (0.0-8.0); NEUT % 69.8 % (16.0-70.0); PLATELET COUNT 66 TH/MM3 (150-450); RED BLOOD COUNT 3.28 MIL/MM3 (4.50-5.90); RED CELL DISTRIBUTION WIDTH 14.5 % (11.6-17.2); WHITE BLOOD COUNT 4.1 TH/MM3 (4.0-11.0)
[2016-05-24 07:53] LABS: HEMO FLAGS AUTO DIFF
[2016-05-24 08:20] VITALS: BP 138/65; PULSE 78; RESP 16; TEMP 97.9; O2SAT 98
[2016-05-24] MEDS: SODIUM CHLORIDE 0.9% FLUSH 5 ML FLUSH IVF SCH ×2 (09:00→19:58)
[2016-05-24 09:20] LABS: SCAN/DIFF AUTO DIFF CONFIRMED
[2016-05-24 09:21] LABS: PLATELET ESTIMATE SMEAR LOW (NORMAL); PLATELET MORPHOLOGY NORMAL (NORMAL)
[2016-05-24] MEDS: CYANOCOBALAMIN 1000 MCG/ML VIAL IM SCH (09:29)
--- NOTE | 2016-05-24 09:29 | RADRPT ---
EXAM DATE/TIME: 05/24/2016 08:57 [facility] COMPARISON: No previous studies available for comparison. INDICATIONS : Left leg pain. MEDICAL HISTORY : Hypertension. SURGICAL HISTORY : Right knee and left shoulder surgery. ENCOUNTER: Initial ACUITY: 1 day PAIN SCORE: 5/10 LOCATION: Left leg. TECHNIQUE: Venous ultrasound of the leg was performed from the inguinal ligament to the proximal calf. Real-sagar e, color Doppler and spectral tracing, compression and augmentation techniques were used. FINDINGS: There is normal compressibility of the deep venous system from the inguinal region to the proximal ca lf. No echogenic clot is seen in the lumen of the common femoral, femoral, popliteal, and posterior tibial veins. There is a normal response of the venous system to proximal and distal augmentation an d respiration. CONCLUSION: No evidence of left lower extremity DVT. Chris Coffman MD on May 24, 2016 at 9:18 Board Certified Radiologist. This report was verified electronically.
[2016-05-24] MEDS: PANTOPRAZOLE SOD 40 MG DELAYED RELEASE TAB PO SCH (09:30)
[2016-05-24] MEDS: CALCIUM/VITAMIN D 250 MG/125 U TAB PO SCH ×3 (09:30→17:39)
[2016-05-24] MEDS: THIAMINE HCL 100 MG TAB PO SCH (09:30)
[2016-05-24] MEDS: DOCUSATE SODIUM 50 MG/SENNA 8.6 MG TAB PO SCH ×2 (09:30→19:59)
[2016-05-24] MEDS: FERROUS SULFATE 325 MG (65 MG ELEMENTAL IRON) TAB PO SCH (09:30)
[2016-05-24] MEDS: levETIRAcetam 250 MG TAB PO SCH ×2 (09:30→19:58)
[2016-05-24] MEDS: CHOLECALCIFEROL (VIT D3) 1000 UNIT TAB PO SCH (09:30)
[2016-05-24] MEDS: LACTULOSE SYRUP 20 GM/30 ML CUP PO SCH ×4 (09:30→19:58)
[2016-05-24] MEDS: NICOTINE 21 MG/24 HR PATCH TD SCH (09:31)
[2016-05-24] MEDS: SODIUM CHLORIDE 0.9% FLUSH 5 ML FLUSH IV FLUSH SCH ×2 (09:37→19:58)
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
[2016-05-24 12:20] VITALS: BP 128/77; PULSE 80; RESP 16; TEMP 98.1; O2SAT 98
[2016-05-24] MEDS: ONDANSETRON HCL 4 MG/2 ML VIAL IV PRN ×2 (12:37→18:31)
[2016-05-24] MEDS: LACTATED RINGER'S 1000 ML INJ 1,000 ML IV SCH (12:57)
[2016-05-24 16:15] VITALS: BP 130/72; PULSE 79; RESP 16; TEMP 97.4; O2SAT 97
[2016-05-24 20:00] VITALS: BP 119/71; PULSE 81; RESP 16; TEMP 99.8; O2SAT 98
[2016-05-24] MEDS: TEMAZEPAM 15 MG CAP PO PRN (22:18)
[2016-05-24] MEDS: LACTATED RINGER'S 1000 ML IV SCH (23:45)
[2016-05-25] VITALS: BP 117/73; PULSE 71; RESP 17; TEMP 99; O2SAT 98
[2016-05-25] MEDS: ONDANSETRON HCL 4 MG/2 ML VIAL IV PRN ×2 (00:22→09:53)
[2016-05-25] MEDS: LACTATED RINGER'S 1000 ML INJ 1,000 ML IV SCH ×3 (02:02→18:55)
[2016-05-25] MEDS: PROPRANOLOL HCL 10 MG TAB PO SCH ×3 (06:03→20:01)
[2016-05-25 08:16] VITALS: BP 115/64; PULSE 76; RESP 16; TEMP 98.6; O2SAT 98
--- NOTE | 2016-05-25 08:38 | PD.ORT.PN ---
Subjective Subjective Remarks Resting comfortably Objective Vitals Vital Signs Date Time Temp Pulse Resp B/P Pulse Ox O2 Delivery O2 Flow Rate FiO2 05/25/16 08:16 98.6 76 16 115/64 98 05/25/16 00:00 99.0 71 17 117/73 98 05/24/16 20:00 99.8 81 16 119/71 98 05/24/16 16:15 97.4 79 16 130/72 97 05/24/16 15:21 18 05/24/16 12:20 98.1 80 16 128/77 98 I/O 05/24/16 05/24/16 05/24/16 05/25/16 05/25/16 05/25/16 07:00 15:00 23:00 07:00 15:00 23:00 Intake Total 240 ml 780 ml 240 ml 240 ml Output Total 300 ml 300 ml 400 ml Balance -60 ml 780 ml -60 ml -160 ml Intake Oral 240 ml 780 ml 240 ml 240 ml Output Urine Total 300 ml 300 ml 400 ml # Voids 33 # Bowel Movements 0 3 0 0 Result Diagram: 05/24/16 0629 Imaging Last 24 hours Impressions Abdomen/Pelvis CT 05/14/16 1218 Signed Impressions: Service Date/Time: Saturday, May 14, 2016 13:53 - CONCLUSION: 1. CT findings characteristic of cirrhosis with portal hypertension as evident by splenomegaly and extensive splenic hilar and short gastric varicosities. 2. Nonobstructing 7 mm calculus in the lower pole collecting system of the left kidney. 3. Extensive cholelithiasis. Edi Mota MD Objective Remarks LLE: Dressings are clean and dry . Incisions well approximated and healing well NVI. limited active dorsiflexion. pain with passive dorsiflexion. +homans Assessment & Plan Assessment and Plan POD # 5 s/p L leg tibial plateau fx ORIF NWB LLE Knee immobilizer at all times except for physical therapy passive range of motion from 0-90 with no active leglifts or quad sets Daily dressing changes with Xeroform heparin for dvt prop-- patient has hx of low platelet count Patient has a friend who is planning to pick him up and a Van and return him home to [place]--plan on possible discharge Saturday if medically cleared -will order stat ultrasound of left leg to rule out DVT Huber Claudio Jr. May 25, 2016 08:38
[2016-05-25] MEDS: CYANOCOBALAMIN 1000 MCG/ML VIAL IM SCH (08:55)
[2016-05-25] MEDS: LACTULOSE SYRUP 20 GM/30 ML CUP PO SCH ×4 (08:55→20:02)
[2016-05-25] MEDS: FERROUS SULFATE 325 MG (65 MG ELEMENTAL IRON) TAB PO SCH (08:55)
[2016-05-25] MEDS: CHOLECALCIFEROL (VIT D3) 1000 UNIT TAB PO SCH (08:55)
[2016-05-25] MEDS: THIAMINE HCL 100 MG TAB PO SCH (08:55)
[2016-05-25] MEDS: CALCIUM/VITAMIN D 250 MG/125 U TAB PO SCH ×3 (08:55→17:28)
[2016-05-25] MEDS: PANTOPRAZOLE SOD 40 MG DELAYED RELEASE TAB PO SCH (08:55)
[2016-05-25] MEDS: NICOTINE 21 MG/24 HR PATCH TD SCH (08:56)
[2016-05-25] MEDS: DOCUSATE SODIUM 50 MG/SENNA 8.6 MG TAB PO SCH ×2 (08:56→20:02)
[2016-05-25] MEDS: SODIUM CHLORIDE 0.9% FLUSH 5 ML FLUSH IVF SCH ×2 (09:00→20:06)
[2016-05-25] MEDS: SODIUM CHLORIDE 0.9% FLUSH 5 ML FLUSH IV FLUSH SCH (09:00)
[2016-05-25] MEDS: levETIRAcetam 250 MG TAB PO SCH ×2 (09:12→20:01)
[2016-05-25 11:24] VITALS: BP 103/67; PULSE 78; RESP 18; TEMP 98.3; O2SAT 96
--- NOTE | 2016-05-25 12:03 | HHI.PR ---
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; recently added; mildly elevated nh3 recs will add zanaflex at night doing well continue kera for now; may d/c in future, outpatient no driving/climbing heights x 6 months of sz free status (2) B12 deficiency Plan: b12 replacement (3) Fracture of proximal end of tibia Plan: followed by ortho Subjective Subjective Comments No acute events reported; wants zanaflex at night for sleep; has taken it for many years no sz No headache No chest pain No dyspnea Active Medications Current Medications Medications (Trade) Dose Ordered Sig/Juan Carlos Route Start Time Stop Time Status Last Admin (Dulcolax Supp) 10 mg DAILY PRN ND 05/11/16 21:00 (Morphine Inj) 2 mg Q3H PRN IV 05/11/16 21:00 05/22/16 21:13 (Nessa-Colace) 1 tab BID PO 05/12/16 21:00 05/25/16 08:56 (Milk Of Magncathryn Liq) 10 ml Q12H PRN PO 05/12/16 10:00 05/15/16 01:24 Miscellaneous Information UNSCH PRN XX 05/12/16 10:00 (NS Flush) 2 ml UNSCH PRN IV FLUSH 05/12/16 12:00 05/22/16 18:12 (NS Flush) 2 ml BID IV FLUSH 05/12/16 21:00 05/25/16 09:00 (Vitamin B1) 100 mg DAILY PO 05/12/16 12:00 05/25/16 08:55 (Zofran Inj) 4 mg Q6H PRN IV 05/12/16 12:00 05/25/16 09:53 (Protonix) 40 mg DAILY PO 05/12/16 12:00 05/25/16 08:55 (Ativan Inj) 1 mg Q4H PRN IV PUSH 05/12/16 12:00 05/19/16 17:42 (Ativan Inj) 2 mg Q2H PRN IV PUSH 05/12/16 12:00 (Ativan Inj) 2 mg Q1H PRN IV PUSH 05/12/16 12:00 (Ativan Inj) 2 mg Q15M PRN IV PUSH 05/12/16 12:00 (Romazicon Inj) 0.2 mg Q1M PRN IV PUSH 05/12/16 12:00 (Ativan) 1 mg Q4H PRN PO 05/12/16 12:00 (Ativan) 2 mg Q2H PRN PO 05/12/16 12:00 (Habitrol 21 Mg Patch.24 Hr) 1 patch DAILY TD 05/12/16 15:45 05/25/16 08:56 (Ferrous Sulfate) 325 mg DAILY PO 05/15/16 09:00 05/25/16 08:55 (Inderal) 10 mg Q8HR PO 05/15/16 14:00 05/25/16 06:03 (Motrin) 400 mg Q6H PRN PO 05/15/16 11:30 (Narcan Inj) 0.4 mg UNSCH PRN IV 05/15/16 11:30 (Roxicodone) 15 mg Q4H PRN PO 05/16/16 12:45 05/25/16 09:54 Oxycodone HCl 10 mg 10 mg Q4H PRN PO 05/16/16 12:46 05/20/16 15:14 (Lr 1000 ml Inj) 1,000 ml @ 30 mls/hr Q24H IV 05/16/16 23:45 05/21/16 23:45 (Tylenol) 650 mg Q4H PRN PO 05/18/16 17:45 (Vitamin B12 Inj) 1,000 mcg Q7D IM 06/01/16 09:00 06/22/16 09:01 (Vitamin B12 Inj) 1,000 mcg Q30D IM 07/21/16 09:00 Levetriacetam 250 mg 250 mg Q12HR PO 05/19/16 11:45 05/25/16 09:12 (Lr 1000 ml Inj) 1,000 ml @ 80 mls/hr [id number] IV 05/20/16 09:32 05/21/16 15:10 (NS Flush) 2 ml UNSCH PRN IVF 05/20/16 09:45 (NS Flush) 2 ml BID IVF 05/20/16 21:00 Miscellaneous Information UNSCH PRN XX 05/20/16 09:45 (Oscal-D 250-125) 250 mg TID PO 05/20/16 13:00 05/25/16 08:55 (Benadryl) 25 mg Q6H PRN PO 05/20/16 09:45 (Vitamin D3) 1,000 units DAILY PO 05/21/16 09:00 05/25/16 08:55 (Drisdol) 50,000 units Q7D PO 05/20/16 10:00 05/20/16 14:12 (Lactulose Liq) 30 ml DAILY PRN PO 05/22/16 09:00 (Restoril) 15 mg HS PRN PO 05/22/16 13:30 05/24/16 22:18 (Lactulose Liq) 30 ml QID PO 05/23/16 13:00 05/25/16 08:55 Allergies Allergies Coded Allergies Iodine (Verified Allergy, Severe, Respiratory Failure, 05/12/16) Codeine (Verified Allergy, Unknown, 05/11/16) Darvocet-N 100 (Verified Allergy, Unknown, 05/11/16) Darvon (Verified Allergy, Unknown, 05/11/16) Review of Systems All other ROS: ROS reviewed as documented in chart Exam I&O / VS 05/24/16 05/24/16 05/25/16 15:00 23:00 07:00 Intake Total 780 ml 240 ml 240 ml Output Total 300 ml 400 ml Balance 780 ml -60 ml -160 ml Intake Oral 780 ml 240 ml 240 ml Output Urine Total 300 ml 400 ml # Voids 33 # Bowel Movements 3 0 0 Vital Signs Date Time Temp Pulse Resp B/P Pulse Ox O2 Delivery O2 Flow Rate FiO2 05/25/16 11:24 98.3 78 18 103/67 96 05/25/16 10:54 18 05/25/16 08:16 98.6 76 16 115/64 98 05/25/16 00:00 99.0 71 17 117/73 98 05/24/16 20:00 99.8 81 16 119/71 98 05/24/16 16:15 97.4 79 16 130/72 97 05/24/16 12:20 98.1 80 16 128/77 98 Exam Comments alert, ox 3 sitting up, appropriate, follows, eomi, face sym, rodriguez, left le in brace, able to lift rt>left leg to gravity Objective Micro and Labs Laboratory Tests Test 05/25/16 06:15 Ammonia 35 Problem Qualifiers (1) Fracture of proximal end of tibia: Qualified Code: S82.192A - Other closed fracture of proximal end of left tibia , initial encounter Claude Roberto MD May 25, 2016 12:03
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
[2016-05-25 15:50] VITALS: BP 113/66; PULSE 79; RESP 18; TEMP 98.2; O2SAT 97
[2016-05-25] MEDS: TEMAZEPAM 15 MG CAP PO PRN (20:01)
[2016-05-25 20:47] VITALS: BP 114/63; PULSE 84; RESP 20; TEMP 96.5; O2SAT 97
[2016-05-26 00:20] VITALS: BP 94/55; PULSE 76; RESP 18; TEMP 97.9; O2SAT 97
[2016-05-26 05:10] VITALS: BP 108/66; PULSE 74; RESP 18; TEMP 96.7; O2SAT 98
[2016-05-26] MEDS: PROPRANOLOL HCL 10 MG TAB PO SCH ×3 (06:00→20:05)
[2016-05-26] MEDS: LACTULOSE SYRUP 20 GM/30 ML CUP PO SCH ×4 (08:33→20:04)
[2016-05-26] MEDS: CALCIUM/VITAMIN D 250 MG/125 U TAB PO SCH ×3 (08:33→16:49)
[2016-05-26] MEDS: levETIRAcetam 250 MG TAB PO SCH ×2 (08:33→20:06)
[2016-05-26] MEDS: FERROUS SULFATE 325 MG (65 MG ELEMENTAL IRON) TAB PO SCH (08:33)
[2016-05-26] MEDS: PANTOPRAZOLE SOD 40 MG DELAYED RELEASE TAB PO SCH (08:34)
[2016-05-26] MEDS: THIAMINE HCL 100 MG TAB PO SCH (08:34)
[2016-05-26] MEDS: DOCUSATE SODIUM 50 MG/SENNA 8.6 MG TAB PO SCH ×2 (08:34→20:05)
[2016-05-26] MEDS: NICOTINE 21 MG/24 HR PATCH TD SCH (08:34)
[2016-05-26] MEDS: CHOLECALCIFEROL (VIT D3) 1000 UNIT TAB PO SCH (08:34)
[2016-05-26] MEDS: SODIUM CHLORIDE 0.9% FLUSH 5 ML FLUSH IVF SCH ×2 (08:36→20:09)
[2016-05-26 08:42] VITALS: BP 124/72; PULSE 86; RESP 18; TEMP 97.5; O2SAT 98
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
[2016-05-26 12:00] VITALS: BP 113/70; PULSE 80; RESP 18; TEMP 98.5; O2SAT 98
[2016-05-26] MEDS: LACTATED RINGER'S 1000 ML INJ 1,000 ML IV SCH ×2 (15:32→19:18)
[2016-05-26 16:00] VITALS: BP 129/72; PULSE 85; RESP 18; TEMP 96.8; O2SAT 97
[2016-05-26 20:00] VITALS: BP 125/69; PULSE 72; RESP 18; TEMP 97.8; O2SAT 99
[2016-05-26] MEDS: TEMAZEPAM 15 MG CAP PO PRN (20:05)
[2016-05-27] VITALS: BP 94/56; PULSE 69; RESP 18; TEMP 98.4; O2SAT 99
[2016-05-27] MEDS: PROPRANOLOL HCL 10 MG TAB PO SCH ×3 (02:52→21:00)
[2016-05-27 04:00] VITALS: BP 96/52; PULSE 77; RESP 18; TEMP 97.3; O2SAT 98
[2016-05-27 07:06] VITALS: BP 108/62; PULSE 80; RESP 16; TEMP 96.6; O2SAT 98
[2016-05-27] MEDS: NICOTINE 21 MG/24 HR PATCH TD SCH (07:47)
[2016-05-27] MEDS: THIAMINE HCL 100 MG TAB PO SCH (07:48)
[2016-05-27] MEDS: FERROUS SULFATE 325 MG (65 MG ELEMENTAL IRON) TAB PO SCH (07:48)
[2016-05-27] MEDS: levETIRAcetam 250 MG TAB PO SCH ×2 (07:48→21:00)
[2016-05-27] MEDS: PANTOPRAZOLE SOD 40 MG DELAYED RELEASE TAB PO SCH (07:48)
[2016-05-27] MEDS: LACTULOSE SYRUP 20 GM/30 ML CUP PO SCH ×3 (07:48→21:00)
[2016-05-27] MEDS: CHOLECALCIFEROL (VIT D3) 1000 UNIT TAB PO SCH (07:48)
[2016-05-27] MEDS: CALCIUM/VITAMIN D 250 MG/125 U TAB PO SCH ×3 (07:48→18:52)
[2016-05-27] MEDS: SODIUM CHLORIDE 0.9% FLUSH 5 ML FLUSH IVF SCH ×2 (07:49→21:04)
[2016-05-27] MEDS: DOCUSATE SODIUM 50 MG/SENNA 8.6 MG TAB PO SCH ×2 (07:49→21:00)
[2016-05-27] MEDS: ERGOCALCIFEROL (VIT D2) 50,000 UNIT CAP PO SCH (10:00)
[2016-05-27] MEDS: ONDANSETRON HCL 4 MG/2 ML VIAL IV PRN (10:13)
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
[2016-05-27 11:06] VITALS: BP 118/65; PULSE 83; RESP 16; TEMP 96.9; O2SAT 96
[2016-05-27 15:34] VITALS: BP 131/67; PULSE 73; RESP 17; TEMP 97.8; O2SAT 100
[2016-05-27 20:00] VITALS: BP 123/67; PULSE 76; RESP 16; TEMP 96.8; O2SAT 99
[2016-05-27] MEDS: TEMAZEPAM 15 MG CAP PO PRN (21:00)
[2016-05-28 00:20] VITALS: BP 114/62; PULSE 77; RESP 20; TEMP 98; O2SAT 99
[2016-05-28] MEDS: LACTATED RINGER'S 1000 ML INJ 1,000 ML IV SCH ×2 (05:02→17:32)
[2016-05-28] MEDS: PROPRANOLOL HCL 10 MG TAB PO SCH ×3 (05:53→20:51)
[2016-05-28 08:00] VITALS: BP 111/66; PULSE 69; RESP 19; TEMP 96.6; O2SAT 98
[2016-05-28] MEDS: DOCUSATE SODIUM 50 MG/SENNA 8.6 MG TAB PO SCH ×2 (08:17→20:51)
[2016-05-28] MEDS: CALCIUM/VITAMIN D 250 MG/125 U TAB PO SCH ×3 (08:17→18:20)
[2016-05-28] MEDS: FERROUS SULFATE 325 MG (65 MG ELEMENTAL IRON) TAB PO SCH (08:17)
[2016-05-28] MEDS: PANTOPRAZOLE SOD 40 MG DELAYED RELEASE TAB PO SCH (08:17)
[2016-05-28] MEDS: CHOLECALCIFEROL (VIT D3) 1000 UNIT TAB PO SCH (08:17)
[2016-05-28] MEDS: NICOTINE 21 MG/24 HR PATCH TD SCH (08:17)
[2016-05-28] MEDS: levETIRAcetam 250 MG TAB PO SCH ×2 (08:17→20:50)
[2016-05-28] MEDS: THIAMINE HCL 100 MG TAB PO SCH (08:18)
[2016-05-28] MEDS: SODIUM CHLORIDE 0.9% FLUSH 5 ML FLUSH IVF SCH ×2 (08:18→20:51)
[2016-05-28] MEDS: LACTULOSE SYRUP 20 GM/30 ML CUP PO SCH ×4 (08:19→20:51)
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
[2016-05-28 12:00] VITALS: BP 120/70; PULSE 70; RESP 19; TEMP 97.2; O2SAT 98
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
[2016-05-28 16:00] VITALS: BP 118/70; PULSE 70; RESP 19; TEMP 96.7; O2SAT 98
[2016-05-28 20:50] VITALS: BP 119/68; PULSE 79; RESP 17; TEMP 97.3; O2SAT 98
[2016-05-28] MEDS: oxyCODONE/ACETAMINOPHEN 5 MG/325 MG TAB PO PRN (20:51)
[2016-05-28] MEDS: TEMAZEPAM 15 MG CAP PO PRN (20:51)
[2016-05-29 00:55] VITALS: BP 94/52; PULSE 63; RESP 17; TEMP 97; O2SAT 96
[2016-05-29] MEDS: oxyCODONE/ACETAMINOPHEN 5 MG/325 MG TAB PO PRN ×3 (02:25→11:30)
[2016-05-29 04:56] VITALS: BP 99/59; PULSE 75; RESP 17; TEMP 97.9; O2SAT 96
[2016-05-29] MEDS: PROPRANOLOL HCL 10 MG TAB PO SCH (05:12)
[2016-05-29] MEDS: LACTATED RINGER'S 1000 ML INJ 1,000 ML IV SCH (06:02)
[2016-05-29 08:00] VITALS: BP 115/70; PULSE 81; RESP 16; TEMP 96.9; O2SAT 98
[2016-05-29] MEDS: SODIUM CHLORIDE 0.9% FLUSH 5 ML FLUSH IVF SCH (09:00)
[2016-05-29] MEDS: LACTULOSE SYRUP 20 GM/30 ML CUP PO SCH (09:00)
[2016-05-29] MEDS: CHOLECALCIFEROL (VIT D3) 1000 UNIT TAB PO SCH (09:24)
[2016-05-29] MEDS: FERROUS SULFATE 325 MG (65 MG ELEMENTAL IRON) TAB PO SCH (09:24)
[2016-05-29] MEDS: CALCIUM/VITAMIN D 250 MG/125 U TAB PO SCH (09:24)
[2016-05-29] MEDS: THIAMINE HCL 100 MG TAB PO SCH (09:24)
[2016-05-29] MEDS: levETIRAcetam 250 MG TAB PO SCH (09:24)
[2016-05-29] MEDS: PANTOPRAZOLE SOD 40 MG DELAYED RELEASE TAB PO SCH (09:24)
[2016-05-29] MEDS: DOCUSATE SODIUM 50 MG/SENNA 8.6 MG TAB PO SCH (09:24)
[2016-05-29] MEDS: NICOTINE 21 MG/24 HR PATCH TD SCH (09:25)
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
[2016-05-29] MEDS ORDERED: TIZA4 PO (10:12)
[2016-05-29] MEDS ORDERED: PANT40TA3 PO (10:12)
[2016-05-29] MEDS ORDERED: LEVE250 PO (10:12)
[2016-05-29] MEDS ORDERED: FERR325T PO (10:12)
[2016-05-29] MEDS ORDERED: VITA100T2 PO (10:12)
[2016-05-29] MEDS ORDERED: CYAN1000P IM ×2 (10:12)
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
[2016-06-01] MEDS ORDERED: CYANOCOBALAMIN 1000 MCG/ML VIAL IM SCH (09:00)
[2016-07-21] MEDS ORDERED: CYANOCOBALAMIN 1000 MCG/ML VIAL IM SCH (09:00)
== END 2016-05-29 13:52 | DRG 492 ==
LOC: NEPB 19:25 → EEVIPCON 20:58 → NEDA 20:58 → N06B 23:21 → N06A 05-17 17:12
PROVIDERS: ADMIT Internal Medicine; ATTEND Internal Medicine
PROC: 0QSHXZZ Reposition Left Tibia, External Approach (ICD-10-PCS; 2016-05-11)
PROC: 0QSH35Z Reposition Left Tibia with External Fixation Device, Percutaneous Approach (ICD-10-PCS; principal; 2016-05-12 09:36)
PROC: 30233R1 Transfusion of Nonautologous Platelets into Peripheral Vein, Percutaneous Approach (ICD-10-PCS; 2016-05-14)
PROC: 0QSH04Z Reposition Left Tibia with Internal Fixation Device, Open Approach (ICD-10-PCS; 2016-05-20)
PROC: 0QPHX5Z Removal of External Fixation Device from Left Tibia, External Approach (ICD-10-PCS; 2016-05-20)
DX: S82.142A Displaced bicondylar fracture of left tibia, initial encounter for closed fracture (principal); G93.40 Encephalopathy, unspecified; A41.9 Sepsis, unspecified organism; K76.6 Portal hypertension; R56.1 Post traumatic seizures; R65.10 Systemic inflammatory response syndrome (SIRS) of non-infectious origin without acute organ dysfunction; D69.59 Other secondary thrombocytopenia; K74.60 Unspecified cirrhosis of liver; E86.0 Dehydration; B19.20 Unspecified viral hepatitis C without hepatic coma; I10 Essential (primary) hypertension; D73.1 Hypersplenism; F17.210 Nicotine dependence, cigarettes, uncomplicated; M54.5 Low back pain; G89.29 Other chronic pain; K80.20 Calculus of gallbladder without cholecystitis without obstruction; E61.1 Iron deficiency; D51.0 Vitamin B12 deficiency anemia due to intrinsic factor deficiency; Z91.041 Radiographic dye allergy status; V29.49XA Motorcycle driver injured in collision with other motor vehicles in traffic accident, initial encounter
CPT/HCPCS: 27752; 36430; 70450; 71010; 73560; 73564; 73590; 73700; 74176; 76000; 80048; 80053; 80074; 80076; 80307; 82103; 82105; 82140; 82247; 82248; 82390; 82565; 82607; 82652; 82728; 82746; 83010; 83090; 83516; 83520; 83540; 83550; 83605; 83615; 83735; 83921; 84100; 84145; 85007; 85014; 85018; 85025; 85027; 85049; 85060; 85610; 85730; 86038; 86256; 86340; 86430; 86703; 86880; 86900; 86901; 87040; 87522; 93005; 93971; 94150; 95819; 99152; C1713; J0690; J1200; J1580; J1644; J2060; J2250; J2270; J2370; J2405; J2710; J2930; J3010; J3370; J3410; J3420; J3475; J7030; J7050; J7120; L1830; L8699; P9035